=== PATIENT | male | born 1985 | race Caucasian/White ===

== ENCOUNTER 2019-10-12 14:28 | Inpatient (IN) ==
[2019-10-12] MEDS ORDERED: cefTRIAXone 1,000 MG in Water for inj. (sterile) 10 ML IVP ONE (14:40)
[2019-10-12] MEDS ORDERED: Azithromycin 500 MG in 0.9 % Sodium Chloride 250 ML IVPB ONE (14:40)
[2019-10-12] MEDS ORDERED: methylPREDNISolone 125 MG/2 ML VIAL IVP ONE (14:49)
[2019-10-12] MEDS ORDERED: Ipratropium/Albuterol Neb 3 ML IH ONE (14:49)
[2019-10-12] MEDS ORDERED: Isovue-370 500 ML BOTTLE IVP ONE (14:49)
[2019-10-12] MEDS: 0.9 % Sodium Chloride 1,000 ML IVC SCH ×3 (14:57→16:18)
[2019-10-12 15:00] LABS: Hematocrit 47.5 % (37.5-50.1); Hemoglobin 16.2 g/dL (12.9-16.9); Mean Corpuscular HGB Conc 34.1 g/dL (31.6-35.5); Mean Corpuscular Hemoglobin 29.4 pg (28.0-33.3); Mean Corpuscular Volume 86.2 fL (83.0-100.0); Mean Platelet Volume 9.7 fL (9.4-12.4); Platelet Count 191 K/mcL (140-400); Red Blood Count 5.51 M/mcL (4.19-5.50); Red Cell Distribution Width 11.5 % (11.5-14.5); White Blood Count 6.1 K/mcL (4.3-11.1)
[2019-10-12 15:27] LABS: Lymphocytes # 0.2 K/mcL (0.6-4.6); Monocytes # 0.4 K/mcL (0.0-1.3); Neutrophils # 5.5 K/mcL (1.6-8.9); Platelet Estimate Normal (Normal)
[2019-10-12 15:34] LABS: VBG HCO3 26 mEq/L (21-27); VBG PCO2 56 mmHg (41-51); VBG PH 7.28 pH Units (7.32-7.42); VBG PO2 47 mmHg (25-50)
[2019-10-12 15:45] LABS: Alanine Aminotransferase 43 Units/L (7-52); Albumin 4.1 g/dL (3.5-5.7); Albumin/Globulin Ratio 1.2 (1.1-2.2); Alkaline Phosphatase 70 Units/L (34-104); Aspartate Amino Transferase 19 Units/L (13-39); BUN/Creatinine Ratio 19 (6-26); Bilirubin,Direct 0.2 mg/dL (0.0-0.2); Bilirubin,Indirect 0.5 mg/dL (0.0-1.0); Bilirubin,Total 0.7 mg/dL (0.3-1.0); Blood Urea Nitrogen 18 mg/dL (6-20); Calcium 9.5 mg/dL (8.6-10.3); Carbon Dioxide 22 mEq/L (23-29); Chloride 93 mEq/L (98-107); Globulin 3.4 g/dL (2.4-3.5); Glucose 454 mg/dL (70-105); Magnesium 1.6 mg/dL (1.6-2.6); Osmolality,Calculated 300 (280-300); Phosphorous 5.7 mg/dL (2.7-4.5); Potassium 3.9 mEq/L (3.5-5.1); Sodium 134 mEq/L (136-145); Total Protein 7.5 g/dL (6.4-8.9); Troponin I < 0.03 ng/mL (< 0.04); eGFR For African Americans > 60 (> 60); eGFR For Non-African Americans > 60 (> 60)
[2019-10-12] MEDS ORDERED: Potassium Chloride 40 MEQ, Lidocaine 1% 2 ML in 0.9 % Sodium Chloride 500 ML IVPB ONE (16:24)
[2019-10-12 16:34] LABS: Bilirubin,Urine Negative (Negative); Blood,Urine Negative (Negative); Clarity,Urine Clear (Clear); Color,Urine Yellow (Yellow); Glucose,Urine (UA) >=1000 mg/dL (Normal); Ketones,Urine 40 mg/dL (Negative); Leukocyte Esterase,Urine Negative (Negative); Nitrite,Urine Negative (Negative); PH,Urine 5.5 pH Units (5.0-8.0); Protein,Urine Negative (Neg-Trace); Specific Gravity,Urine > 1.030 (1.010-1.025); Urobilinogen,Urine Normal (Normal)
[2019-10-12] MEDS ORDERED: Insulin LISPRO 300 UNITS/3 ML VIAL SQ ONE (18:32)
[2019-10-12] MEDS ORDERED: D5% in 0.45% NACL w KCl 20 MEQ/1,000 ML MLS IVC PRN (18:32)
[2019-10-12] MEDS ORDERED: Naloxone 0.4 MG/ML INJ IVP PRN (18:32)
[2019-10-12] MEDS ORDERED: Insulin Regular, Human 100 UNIT/ML IV PRN (18:32)
[2019-10-12] MEDS ORDERED: Albuterol 2.5 MG/3 ML NEBULIZER IH PRN (18:32)
[2019-10-12] MEDS ORDERED: *HR* Dextrose 50 % in Water (Syg) 50 ML SYRINGE IVP PRN (18:32)
[2019-10-12] MEDS ORDERED: Vancomycin (wt based) 1,000 MG VIAL IVPB SCH (19:00)
[2019-10-12 19:30] LABS: ABG Base Excess -1 mEq/L (-2 to 3); ABG HCO3 24 mEq/L (21-27); ABG Oxygen Saturation 97 % (95-98); ABG PCO2 39 mmHg (35-45); ABG PO2 89 mmHg (85-104); ABG TCO2 25 mEq/L (20-26)
[2019-10-12] MEDS: Ipratropium/Albuterol Neb 3 ML IH SCH (19:30)
[2019-10-12] MEDS: Doxycycline 100 MG in 0.9 % Sodium Chloride Mini Bag 100 ML IVPB SCH (20:11)
[2019-10-12] MEDS: 0.9 % Sodium Chloride w KCl 20 MEQ/1,000 ML MLS IVC SCH (20:16)
[2019-10-12] MEDS: Insulin Human Regular 100 UNIT in 0.9 % Sodium Chloride 100 ML IVC SCH (20:19)
[2019-10-12] MEDS: *HR* Heparin 5,000 UNIT/ML VIAL SQ SCH (22:02)
[2019-10-12 22:05] LABS: BUN/Creatinine Ratio 18 (6-26); Blood Urea Nitrogen 13 mg/dL (6-20); Calcium 8.2 mg/dL (8.6-10.3); Carbon Dioxide 22 mEq/L (23-29); Chloride 106 mEq/L (98-107); Glucose 320 mg/dL (70-105); Magnesium 1.6 mg/dL (1.6-2.6); Osmolality,Calculated 298 (280-300); Phosphorous 2.1 mg/dL (2.7-4.5); Potassium 4.1 mEq/L (3.5-5.1); Sodium 138 mEq/L (136-145); eGFR For African Americans > 60 (> 60); eGFR For Non-African Americans > 60 (> 60)
[2019-10-13] MEDS: 0.9 % Sodium Chloride w KCl 20 MEQ/1,000 ML MLS IVC SCH ×9 (00:08→23:44)
[2019-10-13] MEDS: Piperacillin/Tazobactam 3.375 GM in 0.9 % Sodium Chloride Mini Bag 100 ML IVPB SCH ×2 (00:08→08:10)
[2019-10-13] MEDS: Ipratropium/Albuterol Neb 3 ML IH SCH ×7 (00:43→23:42)
[2019-10-13] MEDS: Insulin Human Regular 100 UNIT in 0.9 % Sodium Chloride 100 ML IVC SCH (01:10)
[2019-10-13] MEDS: Acetaminophen 325 MG TABLET PO PRN (04:18)
[2019-10-13 04:24] LABS: Alanine Aminotransferase 28 Units/L (7-52); Albumin 3.1 g/dL (3.5-5.7); Albumin/Globulin Ratio 1.1 (1.1-2.2); Alkaline Phosphatase 35 Units/L (34-104); Aspartate Amino Transferase 15 Units/L (13-39); BUN/Creatinine Ratio 23 (6-26); Bilirubin,Direct 0.1 mg/dL (0.0-0.2); Bilirubin,Indirect 0.5 mg/dL (0.0-1.0); Bilirubin,Total 0.6 mg/dL (0.3-1.0); Blood Urea Nitrogen 14 mg/dL (6-20); Calcium 7.9 mg/dL (8.6-10.3); Carbon Dioxide 23 mEq/L (23-29); Chloride 108 mEq/L (98-107); Globulin 2.7 g/dL (2.4-3.5); Glucose 149 mg/dL (70-105); Osmolality,Calculated 287 (280-300); Potassium 3.6 mEq/L (3.5-5.1); Sodium 137 mEq/L (136-145); Total Protein 5.8 g/dL (6.4-8.9); eGFR For African Americans > 60 (> 60); eGFR For Non-African Americans > 60 (> 60)
[2019-10-13 04:25] LABS: Hematocrit 39.1 % (37.5-50.1); Mean Corpuscular HGB Conc 34.3 g/dL (31.6-35.5); Mean Corpuscular Hemoglobin 29.3 pg (28.0-33.3); Mean Corpuscular Volume 85.4 fL (83.0-100.0); Mean Platelet Volume 9.8 fL (9.4-12.4); Platelet Count 147 K/mcL (140-400); Red Blood Count 4.58 M/mcL (4.19-5.50); Red Cell Distribution Width 11.7 % (11.5-14.5)
[2019-10-13 04:32] LABS: Hemoglobin 13.4 g/dL (12.9-16.9)
[2019-10-13 04:46] LABS: BUN/Creatinine Ratio 22 (6-26); Blood Urea Nitrogen 14 mg/dL (6-20); Calcium 7.8 mg/dL (8.6-10.3); Carbon Dioxide 23 mEq/L (23-29); Chloride 108 mEq/L (98-107); Glucose 154 mg/dL (70-105); Magnesium 1.6 mg/dL (1.6-2.6); Osmolality,Calculated 288 (280-300); Potassium 3.6 mEq/L (3.5-5.1); Sodium 137 mEq/L (136-145); eGFR For African Americans > 60 (> 60); eGFR For Non-African Americans > 60 (> 60)
[2019-10-13] MEDS ORDERED: Potassium Phosphate 44 MEQ in 0.9 % Sodium Chloride 250 ML IVPB ONE (04:54)
[2019-10-13] MEDS: Doxycycline 100 MG in 0.9 % Sodium Chloride Mini Bag 100 ML IVPB SCH (05:00)
[2019-10-13] MEDS: *HR* Heparin 5,000 UNIT/ML VIAL SQ SCH ×3 (05:00→20:47)
[2019-10-13] MEDS ORDERED: Insulin DETEMIR 100 UNIT/ML X5UNITS SQ ONE (05:06)
[2019-10-13 05:55] LABS: Lymphocytes # 0.5 K/mcL (0.6-4.6); Monocytes # 0.2 K/mcL (0.0-1.3); Platelet Estimate Normal (Normal); Reactive Lymphocytes Present (Not Present)
[2019-10-13 07:06] LABS: Phosphorous < 1.0 mg/dL (2.7-4.5)
[2019-10-13] MEDS ORDERED: Insulin LISPRO 300 UNITS/3 ML VIAL SQ SCH (08:00)
[2019-10-13 08:01] LABS: Acinetobacter baumannii by PCR Not Detected (Not Detect); Candida albicans by PCR Not Detected (Not Detect); Candida glabrata by PCR Not Detected (Not Detect); Candida krusei by PCR Not Detected (Not Detect); Candida parapsilosis by PCR Not Detected (Not Detect); Candida tropicalis by PCR Not Detected (Not Detect); Enterobacter cloacae Cmplx PCR Not Detected (Not Detect); Enterobacteriaceae by PCR Not Detected (Not Detect); Enterococcus by PCR Not Detected (Not Detect); Escherichia coli by PCR Not Detected (Not Detect); Klebsiella oxytoca by PCR Not Detected (Not Detect); Klebsiella pneumoniae by PCR Not Detected (Not Detect); Proteus by PCR Not Detected (Not Detect); Pseudomonas aeruginosa by PCR Not Detected (Not Detect); Serratia marcescens by PCR Not Detected (Not Detect); Staphylococcus aureus by PCR DETECTED (Not Detect); Streptococcus agalactiae(B)PCR Not Detected (Not Detect); Streptococcus by PCR Not Detected (Not Detect); Streptococcus pneumoniae PCR Not Detected (Not Detect); Streptococcus pyogenes (A) PCR Not Detected (Not Detect); blaKPC Carbapenem-Resist Gene Not Detected (Not Detect); mecA Methicillin-Resist Gene Not Detected (Not Detect); vanA/B Vancomycin-Resist Genes Not Detected (Not Detect)
[2019-10-13] MEDS: Aspirin Enteric Coated 81 MG Tablet PO SCH (08:06)
[2019-10-13] MEDS: MethylPREDNISolone 40 MG/ML VIAL IVP SCH ×3 (08:30→23:25)
[2019-10-13 08:33] LABS: Estimated Average Glucose 315 mg/dl
[2019-10-13] MEDS ORDERED: *HR* Dextrose 50 % in Water (Syg) 50 ML SYRINGE IVP PRN (08:58)
[2019-10-13] MEDS ORDERED: Insulin Human Regular 100 UNIT in 0.9 % Sodium Chloride 100 ML IVC SCH (09:00)
[2019-10-13 10:19] LABS: Adenovirus Not Detected (Not Detect); Bordetella Pertussis Not Detected (Not Detect); Chlamydophila pneumoniae Not Detected (Not Detect); Coronavirus 229E Not Detected (Not Detect); Coronavirus HKU1 Not Detected (Not Detect); Coronavirus NL63 Not Detected (Not Detect); Coronavirus OC43 Not Detected (Not Detect); Human Metapneumovirus Not Detected (Not Detect); Human Rhinovirus/Enterovirus Not Detected (Not Detect); Influenza A Subtype 2009 H1 Not Detected (Not Detect); Mycoplasma pneumoniae Not Detected (Not Detect); Parainfluenza Virus 1 Not Detected (Not Detect); Parainfluenza Virus 2 Not Detected (Not Detect); Parainfluenza Virus 3 Not Detected (Not Detect); Parainfluenza Virus 4 Not Detected (Not Detect); Respiratory Syncytial Virus Not Detected (Not Detect)
[2019-10-13 10:23] LABS: Influenza B DETECTED (Not Detect)
[2019-10-13] MEDS ORDERED: Perflutren Lipid Microsphere 1.3 ML in 0.9 % Sodium Chloride 8.7 ML IVP ONE (10:49)
[2019-10-13 12:09] LABS: BUN/Creatinine Ratio 27 (6-26); Blood Urea Nitrogen 14 mg/dL (6-20); Calcium 7.7 mg/dL (8.6-10.3); Carbon Dioxide 22 mEq/L (23-29); Chloride 106 mEq/L (98-107); Glucose 144 mg/dL (70-105); Magnesium 1.7 mg/dL (1.6-2.6); Osmolality,Calculated 287 (280-300); Phosphorous 1.9 mg/dL (2.7-4.5); Potassium 3.9 mEq/L (3.5-5.1); Sodium 137 mEq/L (136-145); eGFR For African Americans > 60 (> 60); eGFR For Non-African Americans > 60 (> 60)
[2019-10-13] MEDS: ceFAZolin 2,000 MG in 0.9 % Sodium Chloride 100 ML IVPB SCH ×2 (16:03→23:25)
[2019-10-13 17:43] LABS: BUN/Creatinine Ratio 24 (6-26); Blood Urea Nitrogen 15 mg/dL (6-20); Calcium 7.9 mg/dL (8.6-10.3); Carbon Dioxide 23 mEq/L (23-29); Chloride 105 mEq/L (98-107); Glucose 156 mg/dL (70-105); Magnesium 1.8 mg/dL (1.6-2.6); Osmolality,Calculated 286 (280-300); Phosphorous 2.1 mg/dL (2.7-4.5); Potassium 3.8 mEq/L (3.5-5.1); Sodium 136 mEq/L (136-145); eGFR For African Americans > 60 (> 60); eGFR For Non-African Americans > 60 (> 60)
[2019-10-13] MEDS: 0.9 % Sodium Chloride 1,000 ML IVC SCH (20:46)
[2019-10-13] MEDS ORDERED: Ondansetron 4 MG/2 ML VIAL ONE (20:49)
[2019-10-13] MEDS: Ondansetron 4 MG/2 ML VIAL IVP PRN (20:53)
[2019-10-13] MEDS ORDERED: *HR* HYDROmorphone (PF) 1 MG/ML SYRINGE IVP PRN (23:41)
[2019-10-13 23:49] LABS: BUN/Creatinine Ratio 33 (6-26); Blood Urea Nitrogen 16 mg/dL (6-20); Calcium 7.8 mg/dL (8.6-10.3); Carbon Dioxide 25 mEq/L (23-29); Chloride 104 mEq/L (98-107); Glucose 139 mg/dL (70-105); Magnesium 1.9 mg/dL (1.6-2.6); Osmolality,Calculated 287 (280-300); Phosphorous 1.7 mg/dL (2.7-4.5); Potassium 3.6 mEq/L (3.5-5.1); Sodium 137 mEq/L (136-145); eGFR For African Americans > 60 (> 60); eGFR For Non-African Americans > 60 (> 60)
[2019-10-14] MEDS: Potassium Phosphate 44 MEQ in 0.9 % Sodium Chloride 250 ML IVPB PRN ×2 (02:31→15:51)
[2019-10-14] MEDS: Ipratropium/Albuterol Neb 3 ML IH SCH ×5 (03:37→20:44)
[2019-10-14] MEDS: *HR* Heparin 5,000 UNIT/ML VIAL SQ SCH ×3 (05:05→22:00)
[2019-10-14] MEDS: Pantoprazole 40 MG VIAL IVP SCH ×2 (05:05→21:29)
[2019-10-14] MEDS: 0.9 % Sodium Chloride 1,000 ML IVC SCH (06:13)
[2019-10-14 06:27] LABS: Hematocrit 35.2 % (37.5-50.1); Hemoglobin 12.3 g/dL (12.9-16.9); Mean Corpuscular HGB Conc 34.9 g/dL (31.6-35.5); Mean Corpuscular Hemoglobin 30.2 pg (28.0-33.3); Mean Corpuscular Volume 86.5 fL (83.0-100.0); Mean Platelet Volume 9.5 fL (9.4-12.4); Platelet Count 140 K/mcL (140-400); Red Blood Count 4.07 M/mcL (4.19-5.50); Red Cell Distribution Width 11.9 % (11.5-14.5)
[2019-10-14 06:50] LABS: BUN/Creatinine Ratio 35 (6-26); Blood Urea Nitrogen 17 mg/dL (6-20); Calcium 7.6 mg/dL (8.6-10.3); Carbon Dioxide 26 mEq/L (23-29); Chloride 104 mEq/L (98-107); Glucose 161 mg/dL (70-105); Osmolality,Calculated 289 (280-300); Phosphorous 2.7 mg/dL (2.7-4.5); Potassium 3.8 mEq/L (3.5-5.1); Sodium 137 mEq/L (136-145); eGFR For African Americans > 60 (> 60); eGFR For Non-African Americans > 60 (> 60)
[2019-10-14 06:56] LABS: Lymphocytes # 0.9 K/mcL (0.6-4.6); Monocytes # 0.1 K/mcL (0.0-1.3); Neutrophils # 3.9 K/mcL (1.6-8.9); Platelet Estimate Normal (Normal)
[2019-10-14 07:42] LABS: VBG Ionized Calcium 1.01 mmol/L (1.15-1.35)
[2019-10-14] MEDS ORDERED: Fluconazole 200 MG/100 ML 200 MG/100 ML BAG IVPB SCH (09:00)
[2019-10-14] MEDS ORDERED: Lidocaine -MPF 1% 5 ML AMPUL INFILT ONE (09:15)
[2019-10-14] MEDS: MethylPREDNISolone 40 MG/ML VIAL IVP SCH ×3 (09:30→23:58)
[2019-10-14] MEDS: Aspirin Enteric Coated 81 MG Tablet PO SCH (09:30)
[2019-10-14] MEDS: Piperacillin/Tazobactam 3.375 GM in 0.9 % Sodium Chloride Mini Bag 100 ML IVPB SCH ×3 (10:17→23:58)
[2019-10-14] MEDS ORDERED: *HR* Dextrose 50 % in Water (Syg) 50 ML SYRINGE IVP PRN (11:49)
[2019-10-14] MEDS ORDERED: Dextrose Gel 15 GM/37.5 ML TUBE PO PRN ×2 (11:49)
[2019-10-14] MEDS ORDERED: D5% in Water 1,000 ML IVC PRN (11:49)
[2019-10-14] MEDS ORDERED: Aminoglycoside Consult 1 EACH MC ONE (13:09)
[2019-10-14 14:16] LABS: VBG Ionized Calcium 1.02 mmol/L (1.15-1.35)
[2019-10-14 14:50] LABS: BUN/Creatinine Ratio 31 (6-26); Blood Urea Nitrogen 18 mg/dL (6-20); Calcium 7.9 mg/dL (8.6-10.3); Carbon Dioxide 23 mEq/L (23-29); Chloride 103 mEq/L (98-107); Glucose 275 mg/dL (70-105); Magnesium 2.1 mg/dL (1.6-2.6); Osmolality,Calculated 292 (280-300); Phosphorous 1.7 mg/dL (2.7-4.5); Potassium 3.9 mEq/L (3.5-5.1); Sodium 135 mEq/L (136-145); eGFR For African Americans > 60 (> 60); eGFR For Non-African Americans > 60 (> 60)
[2019-10-14] MEDS: Calcium Gluconate 1gm/50mL 1 GM/50 ML BAG IVPB PRN (16:10)
[2019-10-14] MEDS: Insulin DETEMIR 100 UNIT/ML X5UNITS SQ SCH (16:13)
[2019-10-14] MEDS: Insulin LISPRO 300 UNITS/3 ML VIAL SQ SCH (16:15)
[2019-10-14] MEDS ORDERED: Insulin LISPRO 300 UNITS/3 ML VIAL SQ SCH ×3 (16:30→21:00)
[2019-10-14 18:12] LABS: Hepatitis B Surface Antigen Nonreactive (Nonreactive)
[2019-10-14 18:41] LABS: Hepatitis C Virus Antibody Nonreactive (Nonreactive)
[2019-10-14 18:42] LABS: HIV-1&2 Antibody & p24 Ag Nonreactive (Nonreactive)
[2019-10-14 18:43] LABS: Hepatitis B Core IgM Nonreactive (Nonreactive)
[2019-10-14 18:44] LABS: Hepatitis A Antibody IgM Nonreactive (Nonreactive)
[2019-10-14 21:02] LABS: Amphetamines NEGATIVE ng/mL (Cutoff 30); Barbiturates NEGATIVE ng/mL (Cutoff 75); Benzodiazepines NEGATIVE ng/mL (Cutoff 75); Buprenorphine NEGATIVE ng/mL (Cutoff 1); Cocaine NEGATIVE ng/mL (Cutoff 30); Methadone NEGATIVE ng/mL (Cutoff 40); Methamphetamines NEGATIVE ng/mL (Cutoff 30); Opiates NEGATIVE ng/mL (Cutoff 30); Phencyclidine NEGATIVE ng/mL (Cutoff 15)
[2019-10-14 22:37] LABS: VBG Ionized Calcium 1.11 mmol/L (1.15-1.35)
[2019-10-15] MEDS: Ipratropium/Albuterol Neb 3 ML IH SCH ×3 (00:07→07:37)
[2019-10-15 04:39] LABS: Basophils % 0.2 %; Hematocrit 35.3 % (37.5-50.1); Hemoglobin 11.9 g/dL (12.9-16.9); Immature Granulocytes % 0.8 % (0-4); Lymphocytes # 0.5 K/mcL (0.6-4.6); Lymphocytes % 7.3 %; Mean Corpuscular HGB Conc 33.7 g/dL (31.6-35.5); Mean Corpuscular Hemoglobin 29.2 pg (28.0-33.3); Mean Corpuscular Volume 86.5 fL (83.0-100.0); Mean Platelet Volume 9.7 fL (9.4-12.4); Monocytes # 0.3 K/mcL (0.0-1.3); Monocytes % 5.5 %; Neutrophils # 5.3 K/mcL (1.6-8.9); Platelet Count 178 K/mcL (140-400); Red Blood Count 4.08 M/mcL (4.19-5.50); Red Cell Distribution Width 11.6 % (11.5-14.5); Segmented Neutrophils % 86.2 %; White Blood Count 6.1 K/mcL (4.3-11.1)
[2019-10-15 05:01] LABS: Platelet Estimate Normal (Normal)
[2019-10-15 05:03] LABS: Magnesium 2.2 mg/dL (1.6-2.6); Phosphorous 2.7 mg/dL (2.7-4.5)
[2019-10-15 05:04] LABS: Alanine Aminotransferase 34 Units/L (7-52); Albumin 2.8 g/dL (3.5-5.7); Alkaline Phosphatase 43 Units/L (34-104); Aspartate Amino Transferase 30 Units/L (13-39); BUN/Creatinine Ratio 38 (6-26); Bilirubin,Total 0.6 mg/dL (0.3-1.0); Blood Urea Nitrogen 19 mg/dL (6-20); Carbon Dioxide 27 mEq/L (23-29); Chloride 103 mEq/L (98-107); Globulin 2.9 g/dL (2.4-3.5); Glucose 263 mg/dL (70-105); Osmolality,Calculated 293 (280-300); Sodium 136 mEq/L (136-145); Total Protein 5.7 g/dL (6.4-8.9); eGFR For African Americans > 60 (> 60); eGFR For Non-African Americans > 60 (> 60)
[2019-10-15] MEDS: *HR* Heparin 5,000 UNIT/ML VIAL SQ SCH ×3 (05:38→22:01)
[2019-10-15] MEDS: Pantoprazole 40 MG VIAL IVP SCH ×2 (05:38→17:40)
[2019-10-15] MEDS: Piperacillin/Tazobactam 3.375 GM in 0.9 % Sodium Chloride Mini Bag 100 ML IVPB SCH (07:54)
[2019-10-15] MEDS: MethylPREDNISolone 40 MG/ML VIAL IVP SCH (07:55)
[2019-10-15] MEDS: Insulin LISPRO 300 UNITS/3 ML VIAL SQ SCH ×4 (07:56→17:34)
[2019-10-15] MEDS: Aspirin Enteric Coated 81 MG Tablet PO SCH (07:56)
[2019-10-15] MEDS: Insulin DETEMIR 100 UNIT/ML X5UNITS SQ SCH ×2 (07:56→19:57)
[2019-10-15] MEDS: ceFAZolin 2,000 MG in 0.9 % Sodium Chloride 100 ML IVPB SCH ×2 (16:03→23:24)
[2019-10-15] MEDS ORDERED: *HR* Dextrose 50 % in Water (Syg) 50 ML SYRINGE IVP PRN (16:19)
[2019-10-15] MEDS ORDERED: D5% in Water 1,000 ML IVC PRN (16:19)
[2019-10-15] MEDS ORDERED: Dextrose Gel 15 GM/37.5 ML TUBE PO PRN ×2 (16:19)
[2019-10-15] MEDS ORDERED: Insulin LISPRO 300 UNITS/3 ML VIAL SQ SCH (21:00)
[2019-10-16] MEDS: Ondansetron 4 MG/2 ML VIAL IVP PRN (04:39)
[2019-10-16 04:46] LABS: Basophils % 0.4 %; Hematocrit 36.3 % (37.5-50.1); Hemoglobin 12.5 g/dL (12.9-16.9); Immature Granulocytes % 2.6 % (0-4); Lymphocytes # 0.7 K/mcL (0.6-4.6); Lymphocytes % 5.8 %; Mean Corpuscular HGB Conc 34.4 g/dL (31.6-35.5); Mean Corpuscular Hemoglobin 29.6 pg (28.0-33.3); Mean Corpuscular Volume 85.8 fL (83.0-100.0); Mean Platelet Volume 9.5 fL (9.4-12.4); Monocytes # 0.6 K/mcL (0.0-1.3); Monocytes % 4.9 %; Neutrophils # 9.7 K/mcL (1.6-8.9); Platelet Count 239 K/mcL (140-400); Red Blood Count 4.23 M/mcL (4.19-5.50); Red Cell Distribution Width 11.6 % (11.5-14.5); Segmented Neutrophils % 86.3 %; White Blood Count 11.2 K/mcL (4.3-11.1)
[2019-10-16 04:50] LABS: VBG Ionized Calcium 1.14 mmol/L (1.15-1.35)
[2019-10-16 05:05] LABS: BUN/Creatinine Ratio 45 (6-26); Blood Urea Nitrogen 25 mg/dL (6-20); Calcium 8.3 mg/dL (8.6-10.3); Carbon Dioxide 28 mEq/L (23-29); Chloride 103 mEq/L (98-107); Glucose 167 mg/dL (70-105); Osmolality,Calculated 290 (280-300); Sodium 136 mEq/L (136-145); eGFR For African Americans > 60 (> 60); eGFR For Non-African Americans > 60 (> 60)
[2019-10-16 05:10] LABS: Alanine Aminotransferase 29 Units/L (7-52); Albumin 2.8 g/dL (3.5-5.7); Alkaline Phosphatase 46 Units/L (34-104); Aspartate Amino Transferase 14 Units/L (13-39); BUN/Creatinine Ratio 45 (6-26); Bilirubin,Total 0.5 mg/dL (0.3-1.0); Blood Urea Nitrogen 24 mg/dL (6-20); Calcium 8.4 mg/dL (8.6-10.3); Carbon Dioxide 27 mEq/L (23-29); Chloride 103 mEq/L (98-107); Globulin 2.9 g/dL (2.4-3.5); Glucose 160 mg/dL (70-105); Magnesium 1.8 mg/dL (1.6-2.6); Osmolality,Calculated 289 (280-300); Phosphorous 3.4 mg/dL (2.7-4.5); Sodium 136 mEq/L (136-145); Total Protein 5.7 g/dL (6.4-8.9); eGFR For African Americans > 60 (> 60); eGFR For Non-African Americans > 60 (> 60)
[2019-10-16 05:16] LABS: ABG Base Excess 5 mEq/L (-2 to 3); ABG HCO3 29 mEq/L (21-27); ABG Oxygen Saturation 88 % (95-98); ABG PCO2 40 mmHg (35-45); ABG PH 7.47 pH Units (7.32-7.45); ABG PO2 52 mmHg (85-104); ABG TCO2 30 mEq/L (20-26)
[2019-10-16] MEDS: Pantoprazole 40 MG VIAL IVP SCH ×3 (05:57→11:39)
[2019-10-16] MEDS: *HR* Heparin 5,000 UNIT/ML VIAL SQ SCH ×3 (05:57→21:34)
[2019-10-16] MEDS ORDERED: *HR* Promethazine 25 MG/ML VIAL ONE (07:19)
[2019-10-16] MEDS: FentaNYL (PF) 1,000 MCG in 0.9 % Sodium Chloride 80 ML IVC SCH ×2 (08:08→16:35)
[2019-10-16] MEDS ORDERED: *HR* Vecuronium 10 MG VIAL ONE (08:12)
[2019-10-16 08:21] LABS: ABG Base Excess 7 mEq/L (-2 to 3); ABG HCO3 34 mEq/L (21-27); ABG Oxygen Saturation 88 % (95-98); ABG PCO2 57 mmHg (35-45); ABG PH 7.38 pH Units (7.32-7.45); ABG PO2 57 mmHg (85-104); ABG TCO2 35 mEq/L (20-26); Blood Gas Modality AF; Blood Gas VT 550 cc
[2019-10-16] MEDS: Cisatracurium 200 MG in 0.9 % Sodium Chloride 180 ML IVC SCH ×2 (08:41→20:20)
[2019-10-16] MEDS ORDERED: *HR* Midazolam HCl 5 MG/5 ML VIAL IVP ONE ×2 (08:55→09:51)
[2019-10-16] MEDS ORDERED: *HR* Rocuronium Bromide 50 MG/5 ML VIAL IVP ONE (08:55)
[2019-10-16] MEDS ORDERED: *HR* Vecuronium 10 MG VIAL IVP ONE (08:57)
[2019-10-16] MEDS ORDERED: 0.9 % Sodium Chloride 1,000 ML ONE (09:15)
[2019-10-16] MEDS ORDERED: *HR* Succinylcholine 200 MG/10 ML VIAL IVP ONE (09:51)
[2019-10-16] MEDS ORDERED: *HR* Propofol 200 MG/20 ML VIAL IVP ONE (09:51)
[2019-10-16] MEDS ORDERED: Piperacillin/Tazobactam 3.375 GM in 0.9 % Sodium Chloride Mini Bag 100 ML IVPB SCH (10:00)
[2019-10-16] MEDS ORDERED: Norepinephrine 4 MG in 0.9 % Sodium Chloride 250 ML IVC SCH (10:45)
[2019-10-16] MEDS: Norepinephrine 4 MG in 0.9 % Sodium Chloride 250 ML IVC SCH (11:19)
[2019-10-16] MEDS: MetroNIDAZOLE 500 MG/100 ML 500 MG/100 ML BAG IVPB SCH ×2 (11:30→17:20)
[2019-10-16] MEDS: Cefepime HCl 2,000 MG in 0.9 % Sodium Chloride Mini Bag 100 ML IVPB SCH ×2 (11:30→17:20)
[2019-10-16] MEDS: Insulin LISPRO 300 UNITS/3 ML VIAL SQ SCH ×3 (11:32→17:43)
[2019-10-16] MEDS: Insulin DETEMIR 100 UNIT/ML X5UNITS SQ SCH (11:32)
[2019-10-16] MEDS: Aspirin Enteric Coated 81 MG Tablet PO SCH (11:32)
[2019-10-16] MEDS: Artificial Tears SOLN 15 ML BOTTLE BOTH EYES PRN (11:38)
[2019-10-16] MEDS: Artificial Tears SOLN 15 ML BOTTLE BOTH EYES SCH ×3 (11:39→21:34)
[2019-10-16] MEDS: Chlorhexidine Rinse 15 ML MOUTHWASH MM SCH ×2 (11:39→19:40)
[2019-10-16 11:47] LABS: ABG Base Excess 5 mEq/L (-2 to 3); ABG HCO3 35 mEq/L (21-27); ABG Oxygen Saturation 92 % (95-98); ABG PCO2 73 mmHg (35-45); ABG PH 7.29 pH Units (7.32-7.45); ABG PO2 73 mmHg (85-104); ABG TCO2 37 mEq/L (20-26); Blood Gas Modality AF; Blood Gas VT 550 cc
[2019-10-16] MEDS ORDERED: *HR* Dextrose 50 % in Water (Syg) 50 ML SYRINGE IVP PRN (12:08)
[2019-10-16] MEDS ORDERED: Insulin Human Regular 100 UNIT in 0.9 % Sodium Chloride 100 ML IVC SCH (12:15)
[2019-10-16 13:16] LABS: ABG Base Excess 3 mEq/L (-2 to 3); ABG HCO3 31 mEq/L (21-27); ABG Oxygen Saturation 89 % (95-98); ABG PCO2 63 mmHg (35-45); ABG PO2 64 mmHg (85-104); ABG TCO2 33 mEq/L (20-26); Blood Gas Modality AF; Blood Gas VT 550 cc
[2019-10-16 14:35] LABS: ABG Base Excess 4 mEq/L (-2 to 3); ABG HCO3 32 mEq/L (21-27); ABG Oxygen Saturation 98 % (95-98); ABG PCO2 65 mmHg (35-45); ABG PO2 120 mmHg (85-104); ABG TCO2 34 mEq/L (20-26); Blood Gas Modality AF; Blood Gas VT 550 cc
[2019-10-16] MEDS: MethylPREDNISolone 40 MG/ML VIAL IVP SCH (15:02)
[2019-10-16] MEDS ORDERED: 0.9 % Sodium Chloride 500 ML ONE (16:54)
[2019-10-16 17:58] LABS: Bilirubin,Urine Negative (Negative); Blood,Urine Moderate (Negative); Clarity,Urine Turbid (Clear); Color,Urine Dark Yellow (Yellow); Glucose,Urine (UA) 100 mg/dL (Normal); Ketones,Urine Negative (Negative); Leukocyte Esterase,Urine Negative (Negative); Nitrite,Urine Negative (Negative); PH,Urine 5.5 pH Units (5.0-8.0); Protein,Urine 30 mg/dL (Neg-Trace); Specific Gravity,Urine > 1.030 (1.010-1.025); Urobilinogen,Urine Normal (Normal)
[2019-10-16 18:00] LABS: Bacteria,Urine None Seen per hpf (None-Few); Hyaline Casts,Urine Few per lpf (None-Few); RBC,Urine 50-100 per hpf (0-3); Squamous Epithelial Cell,Urine Many per lpf (None-Few)
[2019-10-16] MEDS ORDERED: Insulin LISPRO 300 UNITS/3 ML VIAL SQ SCH (18:00)
[2019-10-16 20:10] LABS: ABG Base Excess 5 mEq/L (-2 to 3); ABG HCO3 33 mEq/L (21-27); ABG Oxygen Saturation 99 % (95-98); ABG PCO2 60 mmHg (35-45); ABG PH 7.34 pH Units (7.32-7.45); ABG PO2 138 mmHg (85-104); ABG TCO2 35 mEq/L (20-26); Blood Gas VT 550 cc
[2019-10-16 20:41] LABS: INR 1.1
[2019-10-17] MEDS: Artificial Tears SOLN 15 ML BOTTLE BOTH EYES SCH ×7 (01:36→23:04)
[2019-10-17] MEDS: Insulin LISPRO 300 UNITS/3 ML VIAL SQ SCH ×5 (01:37→23:16)
[2019-10-17] MEDS: MethylPREDNISolone 40 MG/ML VIAL IVP SCH ×4 (01:43→23:03)
[2019-10-17] MEDS: MetroNIDAZOLE 500 MG/100 ML 500 MG/100 ML BAG IVPB SCH ×3 (01:43→17:56)
[2019-10-17] MEDS: Cefepime HCl 2,000 MG in 0.9 % Sodium Chloride Mini Bag 100 ML IVPB SCH ×3 (01:43→17:57)
[2019-10-17] MEDS: FentaNYL (PF) 1,000 MCG in 0.9 % Sodium Chloride 80 ML IVC SCH ×3 (02:36→22:43)
[2019-10-17 03:21] LABS: Basophils % 0.3 %; Hematocrit 37.3 % (37.5-50.1); Hemoglobin 12.3 g/dL (12.9-16.9); Immature Granulocytes % 6.7 % (0-4); Lymphocytes # 0.3 K/mcL (0.6-4.6); Mean Corpuscular Hemoglobin 29.1 pg (28.0-33.3); Mean Corpuscular Volume 88.2 fL (83.0-100.0); Mean Platelet Volume 9.2 fL (9.4-12.4); Monocytes # 0.6 K/mcL (0.0-1.3); Monocytes % 3.9 %; Neutrophils # 13.8 K/mcL (1.6-8.9); Nucleated Red Blood Cells 0.2 /100 WBC (0); Platelet Count 260 K/mcL (140-400); Red Blood Count 4.23 M/mcL (4.19-5.50); Red Cell Distribution Width 11.9 % (11.5-14.5); Segmented Neutrophils % 87.1 %; White Blood Count 15.8 K/mcL (4.3-11.1)
[2019-10-17 03:23] LABS: VBG Ionized Calcium 1.09 mmol/L (1.15-1.35)
[2019-10-17 03:35] LABS: Basophils # 0.1 K/mcL (0.0-0.2)
[2019-10-17 03:41] LABS: BUN/Creatinine Ratio 39 (6-26); Blood Urea Nitrogen 17 mg/dL (6-20); Calcium 7.8 mg/dL (8.6-10.3); Carbon Dioxide 30 mEq/L (23-29); Chloride 101 mEq/L (98-107); Glucose 139 mg/dL (70-105); Magnesium 2.1 mg/dL (1.6-2.6); Osmolality,Calculated 290 (280-300); Potassium 4.2 mEq/L (3.5-5.1); Sodium 138 mEq/L (136-145); eGFR For African Americans > 60 (> 60); eGFR For Non-African Americans > 60 (> 60)
[2019-10-17 04:03] LABS: Platelet Estimate Normal (Normal)
[2019-10-17 04:11] LABS: Phosphorous 4.4 mg/dL (2.7-4.5)
[2019-10-17 04:52] LABS: ABG Base Excess 6 mEq/L (-2 to 3); ABG HCO3 34 mEq/L (21-27); ABG Oxygen Saturation 99 % (95-98); ABG PCO2 61 mmHg (35-45); ABG PH 7.35 pH Units (7.32-7.45); ABG PO2 127 mmHg (85-104); ABG TCO2 36 mEq/L (20-26); Blood Gas VT 500 cc
[2019-10-17] MEDS: Calcium Gluconate 1gm/50mL 1 GM/50 ML BAG IVPB PRN (05:27)
[2019-10-17] MEDS: *HR* Heparin 5,000 UNIT/ML VIAL SQ SCH ×3 (06:51→21:02)
[2019-10-17] MEDS: Chlorhexidine Rinse 15 ML MOUTHWASH MM SCH ×2 (07:57→21:00)
[2019-10-17] MEDS: Pantoprazole 40 MG VIAL IVP SCH (07:57)
[2019-10-17] MEDS: Aspirin Enteric Coated 81 MG Tablet PO SCH (07:58)
[2019-10-17] MEDS: Cisatracurium 200 MG in 0.9 % Sodium Chloride 180 ML IVC SCH ×2 (09:20→21:02)
[2019-10-17] MEDS: Norepinephrine 4 MG in 0.9 % Sodium Chloride 250 ML IVC SCH (10:35)
[2019-10-17 11:13] LABS: ABG Base Excess 7 mEq/L (-2 to 3); ABG HCO3 35 mEq/L (21-27); ABG Oxygen Saturation 95 % (95-98); ABG PCO2 65 mmHg (35-45); ABG PH 7.34 pH Units (7.32-7.45); ABG PO2 86 mmHg (85-104); ABG TCO2 37 mEq/L (20-26)
[2019-10-17 18:55] LABS: ABG Base Excess 10 mEq/L (-2 to 3); ABG HCO3 39 mEq/L (21-27); ABG Oxygen Saturation 93 % (95-98); ABG PCO2 72 mmHg (35-45); ABG PH 7.34 pH Units (7.32-7.45); ABG PO2 74 mmHg (85-104); ABG TCO2 41 mEq/L (20-26); Blood Gas VT 450 cc
[2019-10-17] MEDS ORDERED: Furosemide 40 MG/4 ML VIAL IVP ONE (20:36)
[2019-10-17] MEDS: Acetaminophen 325 MG TABLET PO PRN (23:03)
[2019-10-18] MEDS: MetroNIDAZOLE 500 MG/100 ML 500 MG/100 ML BAG IVPB SCH ×3 (02:13→17:41)
[2019-10-18] MEDS: Cefepime HCl 2,000 MG in 0.9 % Sodium Chloride Mini Bag 100 ML IVPB SCH ×3 (02:13→17:41)
[2019-10-18] MEDS: Artificial Tears SOLN 15 ML BOTTLE BOTH EYES SCH ×6 (03:22→23:03)
[2019-10-18 03:48] LABS: Basophils # 0.1 K/mcL (0.0-0.2); Basophils % 0.3 %; Hematocrit 39.7 % (37.5-50.1); Hemoglobin 12.7 g/dL (12.9-16.9); Immature Granulocytes % 5.6 % (0-4); Lymphocytes # 0.3 K/mcL (0.6-4.6); Lymphocytes % 1.3 %; Mean Corpuscular Hemoglobin 29.1 pg (28.0-33.3); Mean Corpuscular Volume 91.1 fL (83.0-100.0); Mean Platelet Volume 9.2 fL (9.4-12.4); Monocytes # 0.7 K/mcL (0.0-1.3); Monocytes % 2.8 %; Neutrophils # 22.3 K/mcL (1.6-8.9); Platelet Count 310 K/mcL (140-400); Red Blood Count 4.36 M/mcL (4.19-5.50)
[2019-10-18 03:50] LABS: VBG Ionized Calcium 1.15 mmol/L (1.15-1.35)
[2019-10-18 03:52] LABS: White Blood Count 24.8 K/mcL (4.3-11.1)
[2019-10-18] MEDS: Ipratropium/Albuterol Neb 3 ML IH PRN ×2 (03:58→09:44)
[2019-10-18 04:07] LABS: BUN/Creatinine Ratio 39 (6-26); Blood Urea Nitrogen 27 mg/dL (6-20); Calcium 8.2 mg/dL (8.6-10.3); Carbon Dioxide 37 mEq/L (23-29); Chloride 98 mEq/L (98-107); Glucose 203 mg/dL (70-105); Magnesium 2.3 mg/dL (1.6-2.6); Osmolality,Calculated 301 (280-300); Potassium 4.6 mEq/L (3.5-5.1); Sodium 140 mEq/L (136-145); eGFR For African Americans > 60 (> 60); eGFR For Non-African Americans > 60 (> 60)
[2019-10-18 04:14] LABS: Platelet Estimate Normal (Normal)
[2019-10-18 04:33] LABS: ABG Base Excess 11 mEq/L (-2 to 3); ABG HCO3 40 mEq/L (21-27); ABG Oxygen Saturation 95 % (95-98); ABG PCO2 75 mmHg (35-45); ABG PH 7.34 pH Units (7.32-7.45); ABG PO2 83 mmHg (85-104); ABG TCO2 42 mEq/L (20-26); Blood Gas VT 450 cc
[2019-10-18] MEDS: FentaNYL (PF) 1,000 MCG in 0.9 % Sodium Chloride 80 ML IVC SCH ×4 (05:10→23:18)
[2019-10-18] MEDS: Insulin LISPRO 300 UNITS/3 ML VIAL SQ SCH ×4 (05:21→23:03)
[2019-10-18] MEDS: *HR* Heparin 5,000 UNIT/ML VIAL SQ SCH ×3 (05:21→21:30)
[2019-10-18] MEDS: Aspirin Enteric Coated 81 MG Tablet PO SCH (07:50)
[2019-10-18] MEDS: MethylPREDNISolone 40 MG/ML VIAL IVP SCH ×3 (09:53→17:42)
[2019-10-18] MEDS: Pantoprazole 40 MG VIAL IVP SCH (09:53)
[2019-10-18] MEDS: Chlorhexidine Rinse 15 ML MOUTHWASH MM SCH ×2 (09:53→21:30)
[2019-10-18] MEDS: Norepinephrine 4 MG in 0.9 % Sodium Chloride 250 ML IVC SCH (09:54)
[2019-10-18 15:56] LABS: Bilirubin,Urine Negative (Negative); Blood,Urine Negative (Negative); Clarity,Urine Clear (Clear); Color,Urine Yellow (Yellow); Glucose,Urine (UA) 250 mg/dL (Normal); Ketones,Urine 15 mg/dL (Negative); Leukocyte Esterase,Urine Negative (Negative); Nitrite,Urine Negative (Negative); Protein,Urine 30 mg/dL (Neg-Trace); Specific Gravity,Urine > 1.030 (1.010-1.025); Urobilinogen,Urine Normal (Normal)
[2019-10-18 15:59] LABS: Bacteria,Urine None Seen per hpf (None-Few); Hyaline Casts,Urine Few per lpf (None-Few); Squamous Epithelial Cell,Urine Moderate per lpf (None-Few); WBC,Urine 0-3 per hpf (0-3)
[2019-10-18] MEDS ORDERED: Insulin DETEMIR 100 UNIT/ML X5UNITS SQ SCH (21:00)
[2019-10-19] MEDS: Cefepime HCl 2,000 MG in 0.9 % Sodium Chloride Mini Bag 100 ML IVPB SCH ×3 (01:47→17:28)
[2019-10-19] MEDS: MetroNIDAZOLE 500 MG/100 ML 500 MG/100 ML BAG IVPB SCH ×3 (01:47→17:34)
[2019-10-19] MEDS: Artificial Tears SOLN 15 ML BOTTLE BOTH EYES SCH ×5 (04:00→19:33)
[2019-10-19 04:41] LABS: ABG Base Excess 14 mEq/L (-2 to 3); ABG HCO3 40 mEq/L (21-27); ABG Oxygen Saturation 95 % (95-98); ABG PCO2 59 mmHg (35-45); ABG PH 7.44 pH Units (7.32-7.45); ABG PO2 77 mmHg (85-104); ABG TCO2 42 mEq/L (20-26); Blood Gas VT 450 cc
[2019-10-19] MEDS: MethylPREDNISolone 40 MG/ML VIAL IVP SCH ×2 (05:15→17:33)
[2019-10-19] MEDS: Insulin LISPRO 300 UNITS/3 ML VIAL SQ SCH (05:17)
[2019-10-19] MEDS: *HR* Heparin 5,000 UNIT/ML VIAL SQ SCH ×3 (05:21→21:02)
[2019-10-19 05:39] LABS: Hematocrit 35.7 % (37.5-50.1); Hemoglobin 11.2 g/dL (12.9-16.9); Mean Corpuscular HGB Conc 31.4 g/dL (31.6-35.5); Mean Corpuscular Hemoglobin 28.9 pg (28.0-33.3); Mean Corpuscular Volume 92.2 fL (83.0-100.0); Mean Platelet Volume 9.1 fL (9.4-12.4); Platelet Count 314 K/mcL (140-400); Red Blood Count 3.87 M/mcL (4.19-5.50); Red Cell Distribution Width 11.9 % (11.5-14.5)
[2019-10-19 05:41] LABS: VBG Ionized Calcium 1.13 mmol/L (1.15-1.35)
[2019-10-19 06:00] LABS: BUN/Creatinine Ratio 55 (6-26); Blood Urea Nitrogen 33 mg/dL (6-20); Calcium 8.1 mg/dL (8.6-10.3); Carbon Dioxide 39 mEq/L (23-29); Chloride 100 mEq/L (98-107); Glucose 290 mg/dL (70-105); Magnesium 2.4 mg/dL (1.6-2.6); Osmolality,Calculated 312 (280-300); Potassium 4.2 mEq/L (3.5-5.1); Sodium 142 mEq/L (136-145); eGFR For African Americans > 60 (> 60); eGFR For Non-African Americans > 60 (> 60)
[2019-10-19 06:06] LABS: Lymphocytes # 0.9 K/mcL (0.6-4.6); Neutrophils # 14.1 K/mcL (1.6-8.9); Platelet Estimate Normal (Normal)
[2019-10-19] MEDS: FentaNYL (PF) 1,000 MCG in 0.9 % Sodium Chloride 80 ML IVC SCH ×3 (06:39→21:59)
[2019-10-19] MEDS ORDERED: Aspirin 81 MG TAB.CHEW GTUBE SCH ×2 (08:15)
[2019-10-19] MEDS: Chlorhexidine Rinse 15 ML MOUTHWASH MM SCH ×2 (08:38→21:01)
[2019-10-19] MEDS: Pantoprazole 40 MG VIAL IVP SCH (08:39)
[2019-10-19] MEDS: Norepinephrine 4 MG in 0.9 % Sodium Chloride 250 ML IVC SCH (10:39)
[2019-10-19] MEDS: Insulin Human Regular 100 UNIT in 0.9 % Sodium Chloride 100 ML IVC SCH (12:07)
[2019-10-20] MEDS: Cefepime HCl 2,000 MG in 0.9 % Sodium Chloride Mini Bag 100 ML IVPB SCH ×3 (01:20→17:21)
[2019-10-20] MEDS: Artificial Tears SOLN 15 ML BOTTLE BOTH EYES SCH ×6 (01:20→20:33)
[2019-10-20] MEDS: MetroNIDAZOLE 500 MG/100 ML 500 MG/100 ML BAG IVPB SCH ×3 (01:20→17:25)
[2019-10-20] MEDS: FentaNYL (PF) 1,000 MCG in 0.9 % Sodium Chloride 80 ML IVC SCH ×4 (04:55→22:45)
[2019-10-20 05:03] LABS: Basophils # 0.1 K/mcL (0.0-0.2); Basophils % 0.4 %; Eosinophils % 0.1 %; Hematocrit 36.9 % (37.5-50.1); Hemoglobin 11.8 g/dL (12.9-16.9); Immature Granulocytes % 3.4 % (0-4); Lymphocytes # 0.9 K/mcL (0.6-4.6); Lymphocytes % 5.8 %; Mean Corpuscular Hemoglobin 29.6 pg (28.0-33.3); Mean Corpuscular Volume 92.7 fL (83.0-100.0); Mean Platelet Volume 9.4 fL (9.4-12.4); Monocytes # 0.6 K/mcL (0.0-1.3); Monocytes % 4.1 %; Neutrophils # 12.8 K/mcL (1.6-8.9); Platelet Count 314 K/mcL (140-400); Red Blood Count 3.98 M/mcL (4.19-5.50); Red Cell Distribution Width 11.8 % (11.5-14.5); Segmented Neutrophils % 86.2 %; White Blood Count 14.8 K/mcL (4.3-11.1)
[2019-10-20] MEDS: *HR* Heparin 5,000 UNIT/ML VIAL SQ SCH ×3 (05:07→20:32)
[2019-10-20 05:08] LABS: ABG Base Excess 12 mEq/L (-2 to 3); ABG HCO3 38 mEq/L (21-27); ABG Oxygen Saturation 91 % (95-98); ABG PCO2 52 mmHg (35-45); ABG PH 7.47 pH Units (7.32-7.45); ABG PO2 58 mmHg (85-104); ABG TCO2 40 mEq/L (20-26); Blood Gas Modality ASSIST CONTROL; Blood Gas VT 450 cc
[2019-10-20] MEDS: MethylPREDNISolone 40 MG/ML VIAL IVP SCH (05:08)
[2019-10-20 05:26] LABS: VBG Ionized Calcium 1.12 mmol/L (1.15-1.35)
[2019-10-20 05:29] LABS: BUN/Creatinine Ratio 65 (6-26); Blood Urea Nitrogen 33 mg/dL (6-20); Carbon Dioxide 37 mEq/L (23-29); Chloride 101 mEq/L (98-107); Glucose 111 mg/dL (70-105); Magnesium 2.1 mg/dL (1.6-2.6); Osmolality,Calculated 304 (280-300); Potassium 3.6 mEq/L (3.5-5.1); Sodium 143 mEq/L (136-145); eGFR For African Americans > 60 (> 60); eGFR For Non-African Americans > 60 (> 60)
[2019-10-20] MEDS: Potassium Phosphate 44 MEQ in 0.9 % Sodium Chloride 250 ML IVPB PRN (07:25)
[2019-10-20] MEDS ORDERED: Furosemide 20 MG/2 ML VIAL IVP ONE ×2 (08:14)
[2019-10-20] MEDS: Chlorhexidine Rinse 15 ML MOUTHWASH MM SCH ×2 (08:46→20:32)
[2019-10-20] MEDS: Pantoprazole 40 MG VIAL IVP SCH (08:49)
[2019-10-20] MEDS: Aspirin 81 MG TAB.CHEW GTUBE SCH (08:56)
[2019-10-20] MEDS ORDERED: *HR* FentaNYL (PF) 100 MCG/2 ML VIAL IVP ONE (09:53)
[2019-10-20] MEDS ORDERED: *HR* Midazolam HCl 5 MG/5 ML VIAL IVP ONE (09:53)
[2019-10-20] MEDS: Calcium Gluconate 1gm/50mL 1 GM/50 ML BAG IVPB SCH ×2 (10:00→10:31)
[2019-10-20] MEDS: Norepinephrine 4 MG in 0.9 % Sodium Chloride 250 ML IVC SCH (10:42)
[2019-10-20] MEDS: Ipratropium/Albuterol Neb 3 ML IH PRN (11:22)
[2019-10-20] MEDS: Insulin Human Regular 100 UNIT in 0.9 % Sodium Chloride 100 ML IVC SCH (11:45)
[2019-10-20] MEDS ORDERED: Lidocaine -MPF 1% 5 ML AMPUL INFILT ONE (14:40)
[2019-10-20 16:52] LABS: VBG Ionized Calcium 1.07 mmol/L (1.15-1.35)
[2019-10-20 17:18] LABS: Magnesium 1.8 mg/dL (1.6-2.6); Potassium 3.8 mEq/L (3.5-5.1)
[2019-10-20] MEDS: *HR* LORazepam 2 MG/ML VIAL IVP PRN (22:11)
[2019-10-20] MEDS: Artificial Tears SOLN 15 ML BOTTLE BOTH EYES PRN (23:11)
[2019-10-21] MEDS: Artificial Tears SOLN 15 ML BOTTLE BOTH EYES SCH ×6 (00:09→20:31)
[2019-10-21] MEDS: MetroNIDAZOLE 500 MG/100 ML 500 MG/100 ML BAG IVPB SCH ×3 (01:43→17:42)
[2019-10-21] MEDS: Cefepime HCl 2,000 MG in 0.9 % Sodium Chloride Mini Bag 100 ML IVPB SCH ×3 (01:43→17:42)
[2019-10-21 04:20] LABS: Basophils % 0.3 %; Eosinophils # 0.1 K/mcL (0.0-0.6); Eosinophils % 0.8 %; Hematocrit 33.7 % (37.5-50.1); Immature Granulocytes % 3.2 % (0-4); Lymphocytes # 0.9 K/mcL (0.6-4.6); Mean Corpuscular HGB Conc 32.6 g/dL (31.6-35.5); Mean Corpuscular Hemoglobin 29.8 pg (28.0-33.3); Mean Corpuscular Volume 91.3 fL (83.0-100.0); Mean Platelet Volume 9.5 fL (9.4-12.4); Monocytes # 0.5 K/mcL (0.0-1.3); Monocytes % 3.8 %; Neutrophils # 9.9 K/mcL (1.6-8.9); Nucleated Red Blood Cells 0.2 /100 WBC (0); Platelet Count 282 K/mcL (140-400); Red Blood Count 3.69 M/mcL (4.19-5.50); Red Cell Distribution Width 11.7 % (11.5-14.5); Segmented Neutrophils % 83.9 %; White Blood Count 11.8 K/mcL (4.3-11.1)
[2019-10-21 04:41] LABS: BUN/Creatinine Ratio 55 (6-26); Blood Urea Nitrogen 29 mg/dL (6-20); Calcium 7.5 mg/dL (8.6-10.3); Carbon Dioxide 34 mEq/L (23-29); Chloride 98 mEq/L (98-107); Glucose 151 mg/dL (70-105); Magnesium 1.8 mg/dL (1.6-2.6); Osmolality,Calculated 295 (280-300); Potassium 3.4 mEq/L (3.5-5.1); Sodium 138 mEq/L (136-145); eGFR For African Americans > 60 (> 60); eGFR For Non-African Americans > 60 (> 60)
[2019-10-21 04:48] LABS: ABG Base Excess 12 mEq/L (-2 to 3); ABG HCO3 37 mEq/L (21-27); ABG Oxygen Saturation 92 % (95-98); ABG PCO2 50 mmHg (35-45); ABG PH 7.48 pH Units (7.32-7.45); ABG PO2 62 mmHg (85-104); ABG TCO2 39 mEq/L (20-26); Blood Gas Modality ASSIST CONTROL; Blood Gas VT 450 cc
[2019-10-21] MEDS: FentaNYL (PF) 1,000 MCG in 0.9 % Sodium Chloride 80 ML IVC SCH ×3 (04:54→17:39)
[2019-10-21] MEDS: *HR* Heparin 5,000 UNIT/ML VIAL SQ SCH ×3 (04:56→22:40)
[2019-10-21] MEDS: Pantoprazole 40 MG VIAL IVP SCH (08:59)
[2019-10-21] MEDS: Aspirin 81 MG TAB.CHEW GTUBE SCH (08:59)
[2019-10-21] MEDS: Chlorhexidine Rinse 15 ML MOUTHWASH MM SCH ×2 (08:59→20:30)
[2019-10-21] MEDS: Norepinephrine 4 MG in 0.9 % Sodium Chloride 250 ML IVC SCH (11:14)
[2019-10-21] MEDS: Dexmedetomidine HCl 400 MCG/100 ML MLS IVC SCH ×3 (13:39→22:18)
[2019-10-21] MEDS: Furosemide 20 MG/2 ML VIAL IVP SCH ×2 (13:49→20:30)
[2019-10-21 15:24] LABS: Magnesium 1.9 mg/dL (1.6-2.6); Potassium 3.8 mEq/L (3.5-5.1)
[2019-10-21] MEDS: Insulin Human Regular 100 UNIT in 0.9 % Sodium Chloride 100 ML IVC SCH (18:00)
[2019-10-22] MEDS: Artificial Tears SOLN 15 ML BOTTLE BOTH EYES SCH ×6 (00:03→21:19)
[2019-10-22 01:17] LABS: Basophils # 0.1 K/mcL (0.0-0.2); Basophils % 0.5 %; Eosinophils # 0.1 K/mcL (0.0-0.6); Eosinophils % 0.9 %; Hematocrit 35.3 % (37.5-50.1); Hemoglobin 11.8 g/dL (12.9-16.9); Immature Granulocytes % 4.8 % (0-4); Lymphocytes # 0.5 K/mcL (0.6-4.6); Lymphocytes % 3.7 %; Mean Corpuscular HGB Conc 33.4 g/dL (31.6-35.5); Mean Corpuscular Hemoglobin 29.9 pg (28.0-33.3); Mean Corpuscular Volume 89.4 fL (83.0-100.0); Mean Platelet Volume 9.1 fL (9.4-12.4); Monocytes # 0.4 K/mcL (0.0-1.3); Monocytes % 3.4 %; Neutrophils # 10.7 K/mcL (1.6-8.9); Platelet Count 292 K/mcL (140-400); Red Blood Count 3.95 M/mcL (4.19-5.50); Red Cell Distribution Width 11.7 % (11.5-14.5); Segmented Neutrophils % 86.7 %; White Blood Count 12.4 K/mcL (4.3-11.1)
[2019-10-22 01:19] LABS: VBG Ionized Calcium 1.03 mmol/L (1.15-1.35)
[2019-10-22 01:46] LABS: BUN/Creatinine Ratio 40 (6-26); Blood Urea Nitrogen 25 mg/dL (6-20); Calcium 7.6 mg/dL (8.6-10.3); Carbon Dioxide 35 mEq/L (23-29); Chloride 95 mEq/L (98-107); Glucose 201 mg/dL (70-105); Magnesium 2.1 mg/dL (1.6-2.6); Osmolality,Calculated 290 (280-300); Potassium 3.8 mEq/L (3.5-5.1); Sodium 135 mEq/L (136-145); eGFR For African Americans > 60 (> 60); eGFR For Non-African Americans > 60 (> 60)
[2019-10-22] MEDS: Cefepime HCl 2,000 MG in 0.9 % Sodium Chloride Mini Bag 100 ML IVPB SCH ×2 (01:59→09:56)
[2019-10-22] MEDS: MetroNIDAZOLE 500 MG/100 ML 500 MG/100 ML BAG IVPB SCH ×3 (02:00→16:32)
[2019-10-22] MEDS: Calcium Gluconate 1gm/50mL 1 GM/50 ML BAG IVPB PRN ×2 (02:57→16:31)
[2019-10-22] MEDS: FentaNYL (PF) 1,000 MCG in 0.9 % Sodium Chloride 80 ML IVC SCH ×2 (04:34→16:33)
[2019-10-22 04:49] LABS: ABG Base Excess 12 mEq/L (-2 to 3); ABG HCO3 37 mEq/L (21-27); ABG Oxygen Saturation 98 % (95-98); ABG PCO2 47 mmHg (35-45); ABG PO2 94 mmHg (85-104); ABG TCO2 38 mEq/L (20-26); Blood Gas Modality ASSIST CONTROL; Blood Gas VT 450 cc
[2019-10-22] MEDS: *HR* Heparin 5,000 UNIT/ML VIAL SQ SCH ×3 (06:03→20:31)
[2019-10-22] MEDS: Insulin Human Regular 100 UNIT in 0.9 % Sodium Chloride 100 ML IVC SCH ×3 (07:00→21:21)
[2019-10-22] MEDS: Furosemide 20 MG/2 ML VIAL IVP SCH ×2 (08:02→20:32)
[2019-10-22] MEDS: Chlorhexidine Rinse 15 ML MOUTHWASH MM SCH ×2 (08:04→20:31)
[2019-10-22] MEDS: Pantoprazole 40 MG VIAL IVP SCH (08:04)
[2019-10-22] MEDS: Dexmedetomidine HCl 400 MCG/100 ML MLS IVC SCH (08:17)
[2019-10-22 09:43] LABS: ABG Base Excess 13 mEq/L (-2 to 3); ABG HCO3 38 mEq/L (21-27); ABG Oxygen Saturation 95 % (95-98); ABG PCO2 51 mmHg (35-45); ABG PH 7.48 pH Units (7.32-7.45); ABG PO2 71 mmHg (85-104); ABG TCO2 39 mEq/L (20-26); Blood Gas Modality ASSIST CONTROL; Blood Gas VT 500 cc
[2019-10-22] MEDS: Norepinephrine 4 MG in 0.9 % Sodium Chloride 250 ML IVC SCH (10:34)
[2019-10-22 15:20] LABS: VBG Ionized Calcium 1.08 mmol/L (1.15-1.35)
[2019-10-22] MEDS: Meropenem 1,000 MG in 0.9 % Sodium Chloride Mini Bag 100 ML IVPB SCH (16:31)
[2019-10-22 22:04] LABS: Albumin 2.2 g/dL (3.5-5.7); Albumin/Globulin Ratio 0.6 (1.1-2.2); Bilirubin,Direct 0.1 mg/dL (0.0-0.2); Bilirubin,Indirect 0.2 mg/dL (0.0-1.0); Bilirubin,Total 0.3 mg/dL (0.3-1.0); Globulin 3.8 g/dL (2.4-3.5)
[2019-10-23] MEDS: Artificial Tears SOLN 15 ML BOTTLE BOTH EYES PRN ×2 (00:01→02:57)
[2019-10-23] MEDS: FentaNYL (PF) 1,000 MCG in 0.9 % Sodium Chloride 80 ML IVC SCH ×4 (00:01→17:15)
[2019-10-23] MEDS: Artificial Tears SOLN 15 ML BOTTLE BOTH EYES SCH ×6 (00:04→20:49)
[2019-10-23] MEDS: MetroNIDAZOLE 500 MG/100 ML 500 MG/100 ML BAG IVPB SCH (01:56)
[2019-10-23] MEDS ORDERED: Scopolamine Patch 1.5 MG PATCH.TD72 TD ONE (02:37)
[2019-10-23 03:39] LABS: Hematocrit 35.1 % (37.5-50.1); Hemoglobin 11.2 g/dL (12.9-16.9); Mean Corpuscular HGB Conc 31.9 g/dL (31.6-35.5); Mean Corpuscular Hemoglobin 29.1 pg (28.0-33.3); Mean Corpuscular Volume 91.2 fL (83.0-100.0); Mean Platelet Volume 9.3 fL (9.4-12.4); Platelet Count 286 K/mcL (140-400); Red Blood Count 3.85 M/mcL (4.19-5.50); Red Cell Distribution Width 11.8 % (11.5-14.5); White Blood Count 10.2 K/mcL (4.3-11.1)
[2019-10-23 03:41] LABS: VBG Ionized Calcium 1.03 mmol/L (1.15-1.35)
[2019-10-23 03:56] LABS: BUN/Creatinine Ratio 42 (6-26); Blood Urea Nitrogen 20 mg/dL (6-20); Calcium 7.7 mg/dL (8.6-10.3); Carbon Dioxide 35 mEq/L (23-29); Chloride 98 mEq/L (98-107); Glucose 161 mg/dL (70-105); Magnesium 1.9 mg/dL (1.6-2.6); Osmolality,Calculated 280 (280-300); Phosphorous 3.1 mg/dL (2.7-4.5); Potassium 4.4 mEq/L (3.5-5.1); Sodium 132 mEq/L (136-145); eGFR For African Americans > 60 (> 60); eGFR For Non-African Americans > 60 (> 60)
[2019-10-23 04:18] LABS: Lymphocytes # 0.8 K/mcL (0.6-4.6); Monocytes # 0.4 K/mcL (0.0-1.3); Neutrophils # 8.4 K/mcL (1.6-8.9)
[2019-10-23 04:20] LABS: ABG Base Excess 10 mEq/L (-2 to 3); ABG HCO3 36 mEq/L (21-27); ABG Oxygen Saturation 98 % (95-98); ABG PCO2 50 mmHg (35-45); ABG PH 7.46 pH Units (7.32-7.45); ABG PO2 98 mmHg (85-104); ABG TCO2 37 mEq/L (20-26); Blood Gas Modality AF; Blood Gas VT 500 cc
[2019-10-23] MEDS: Dexmedetomidine HCl 400 MCG/100 ML MLS IVC SCH ×2 (05:23→19:42)
[2019-10-23] MEDS: Calcium Gluconate 1gm/50mL 1 GM/50 ML BAG IVPB PRN (05:36)
[2019-10-23] MEDS: *HR* Heparin 5,000 UNIT/ML VIAL SQ SCH ×3 (05:37→20:49)
[2019-10-23] MEDS: Insulin Human Regular 100 UNIT in 0.9 % Sodium Chloride 100 ML IVC SCH ×2 (06:29→21:59)
[2019-10-23] MEDS: Pantoprazole 40 MG VIAL IVP SCH (09:35)
[2019-10-23] MEDS: Furosemide 20 MG/2 ML VIAL IVP SCH ×2 (09:36→20:49)
[2019-10-23] MEDS: Chlorhexidine Rinse 15 ML MOUTHWASH MM SCH ×2 (09:36→20:49)
[2019-10-23] MEDS: Aspirin 81 MG TAB.CHEW GTUBE SCH (09:36)
[2019-10-23] MEDS: Meropenem 1,000 MG in 0.9 % Sodium Chloride Mini Bag 100 ML IVPB SCH ×3 (09:36→16:20)
[2019-10-23] MEDS: Norepinephrine 4 MG in 0.9 % Sodium Chloride 250 ML IVC SCH (19:42)
[2019-10-23] MEDS ORDERED: QUEtiapine Fumarate 25 MG TABLET PO SCH (21:00)
[2019-10-24] MEDS: Meropenem 1,000 MG in 0.9 % Sodium Chloride Mini Bag 100 ML IVPB SCH ×4 (00:11→23:24)
[2019-10-24] MEDS: Artificial Tears SOLN 15 ML BOTTLE BOTH EYES SCH ×4 (00:15→11:26)
[2019-10-24 04:12] LABS: ABG Base Excess 11 mEq/L (-2 to 3); ABG HCO3 36 mEq/L (21-27); ABG Oxygen Saturation 91 % (95-98); ABG PCO2 50 mmHg (35-45); ABG PH 7.47 pH Units (7.32-7.45); ABG PO2 58 mmHg (85-104); ABG TCO2 38 mEq/L (20-26); Blood Gas Modality ASSIST CONTROL; Blood Gas VT 480 cc
[2019-10-24] MEDS: Dexmedetomidine HCl 400 MCG/100 ML MLS IVC SCH ×5 (04:12→21:35)
[2019-10-24 04:16] LABS: VBG Ionized Calcium 0.99 mmol/L (1.15-1.35)
[2019-10-24 04:33] LABS: Phosphorous 3.5 mg/dL (2.7-4.5)
[2019-10-24 05:00] LABS: BUN/Creatinine Ratio 30 (6-26); Blood Urea Nitrogen 17 mg/dL (6-20); Calcium 7.8 mg/dL (8.6-10.3); Carbon Dioxide 36 mEq/L (23-29); Chloride 95 mEq/L (98-107); Glucose 186 mg/dL (70-105); Magnesium 1.9 mg/dL (1.6-2.6); Osmolality,Calculated 284 (280-300); Potassium 4.9 mEq/L (3.5-5.1); Sodium 134 mEq/L (136-145); eGFR For African Americans > 60 (> 60); eGFR For Non-African Americans > 60 (> 60)
[2019-10-24] MEDS: Calcium Gluconate 1gm/50mL 1 GM/50 ML BAG IVPB PRN ×3 (05:18→15:53)
[2019-10-24] MEDS: *HR* Heparin 5,000 UNIT/ML VIAL SQ SCH ×3 (05:18→19:57)
[2019-10-24 05:46] LABS: Basophils # 0.1 K/mcL (0.0-0.2); Basophils % 1.2 %; Eosinophils # 0.1 K/mcL (0.0-0.6); Eosinophils % 2.1 %; Hematocrit 37.2 % (37.5-50.1); Hemoglobin 11.4 g/dL (12.9-16.9); Immature Granulocytes % 7.9 % (0-4); Lymphocytes # 0.7 K/mcL (0.6-4.6); Lymphocytes % 10.3 %; Mean Corpuscular HGB Conc 30.6 g/dL (31.6-35.5); Mean Corpuscular Hemoglobin 28.9 pg (28.0-33.3); Mean Corpuscular Volume 94.4 fL (83.0-100.0); Mean Platelet Volume 9.4 fL (9.4-12.4); Monocytes # 0.6 K/mcL (0.0-1.3); Monocytes % 8.3 %; Neutrophils # 4.7 K/mcL (1.6-8.9); Platelet Count 268 K/mcL (140-400); Red Blood Count 3.94 M/mcL (4.19-5.50); Red Cell Distribution Width 11.9 % (11.5-14.5); Segmented Neutrophils % 70.2 %; White Blood Count 6.7 K/mcL (4.3-11.1)
[2019-10-24 06:33] LABS: Anisocytosis 1+ (Not Present); Platelet Estimate Normal (Normal); Poikilocytosis 1+ (Not Present)
[2019-10-24] MEDS ORDERED: Furosemide 40 MG/4 ML VIAL IVP STA (08:09)
[2019-10-24] MEDS: Pantoprazole 40 MG VIAL IVP SCH (08:26)
[2019-10-24] MEDS: Aspirin 81 MG TAB.CHEW GTUBE SCH (08:26)
[2019-10-24] MEDS: Chlorhexidine Rinse 15 ML MOUTHWASH MM SCH ×2 (08:26→19:53)
[2019-10-24] MEDS: Furosemide 20 MG/2 ML VIAL IVP SCH ×2 (08:27→19:53)
[2019-10-24] MEDS ORDERED: Furosemide 40 MG/4 ML VIAL IVP ONE (12:00)
[2019-10-24] MEDS ORDERED: Insulin LISPRO 300 UNITS/3 ML VIAL SQ SCH (12:00)
[2019-10-24] MEDS ORDERED: *HR* Metoprolol 5 MG/5 ML VIAL IVP PRN (14:34)
[2019-10-24 15:17] LABS: VBG Ionized Calcium 1.01 mmol/L (1.15-1.35)
[2019-10-24 15:27] LABS: BUN/Creatinine Ratio 34 (6-26); Blood Urea Nitrogen 19 mg/dL (6-20); Calcium 7.8 mg/dL (8.6-10.3); Carbon Dioxide 36 mEq/L (23-29); Chloride 92 mEq/L (98-107); Glucose 305 mg/dL (70-105); Osmolality,Calculated 290 (280-300); Potassium 3.9 mEq/L (3.5-5.1); Sodium 133 mEq/L (136-145); eGFR For African Americans > 60 (> 60); eGFR For Non-African Americans > 60 (> 60)
[2019-10-24] MEDS: Insulin LISPRO 300 UNITS/3 ML VIAL SQ SCH ×3 (16:05→23:24)
[2019-10-24] MEDS: Norepinephrine 4 MG in 0.9 % Sodium Chloride 250 ML IVC SCH (19:09)
[2019-10-24] MEDS: *HR* LORazepam 2 MG/ML VIAL IVP PRN (21:00)
[2019-10-24 22:06] LABS: BUN/Creatinine Ratio 29 (6-26); Blood Urea Nitrogen 15 mg/dL (6-20); Carbon Dioxide 35 mEq/L (23-29); Chloride 96 mEq/L (98-107); Glucose 174 mg/dL (70-105); Osmolality,Calculated 279 (280-300); Potassium 3.8 mEq/L (3.5-5.1); Sodium 132 mEq/L (136-145); eGFR For African Americans > 60 (> 60); eGFR For Non-African Americans > 60 (> 60)
[2019-10-25] MEDS: Dexmedetomidine HCl 400 MCG/100 ML MLS IVC SCH ×7 (01:08→23:38)
[2019-10-25] MEDS: Insulin LISPRO 300 UNITS/3 ML VIAL SQ SCH ×6 (03:25→23:23)
[2019-10-25 03:46] LABS: Basophils # 0.1 K/mcL (0.0-0.2); Basophils % 0.7 %; Eosinophils # 0.1 K/mcL (0.0-0.6); Hematocrit 33.2 % (37.5-50.1); Immature Granulocytes % 5.3 % (0-4); Lymphocytes # 0.8 K/mcL (0.6-4.6); Lymphocytes % 11.4 %; Mean Corpuscular HGB Conc 33.1 g/dL (31.6-35.5); Mean Corpuscular Hemoglobin 29.5 pg (28.0-33.3); Mean Platelet Volume 9.2 fL (9.4-12.4); Monocytes # 0.8 K/mcL (0.0-1.3); Monocytes % 11.7 %; Neutrophils # 4.8 K/mcL (1.6-8.9); Platelet Count 337 K/mcL (140-400); Red Blood Count 3.73 M/mcL (4.19-5.50); Red Cell Distribution Width 11.6 % (11.5-14.5); Segmented Neutrophils % 69.9 %; White Blood Count 6.9 K/mcL (4.3-11.1)
[2019-10-25 04:05] LABS: BUN/Creatinine Ratio 32 (6-26); Blood Urea Nitrogen 15 mg/dL (6-20); Calcium 8.1 mg/dL (8.6-10.3); Carbon Dioxide 33 mEq/L (23-29); Chloride 97 mEq/L (98-107); Glucose 161 mg/dL (70-105); Magnesium 1.8 mg/dL (1.6-2.6); Osmolality,Calculated 280 (280-300); Potassium 4.2 mEq/L (3.5-5.1); Sodium 133 mEq/L (136-145); eGFR For African Americans > 60 (> 60); eGFR For Non-African Americans > 60 (> 60)
[2019-10-25 04:33] LABS: Platelet Estimate Normal (Normal)
[2019-10-25] MEDS: *HR* Heparin 5,000 UNIT/ML VIAL SQ SCH ×3 (05:36→22:17)
[2019-10-25] MEDS: *HR* LORazepam 2 MG/ML VIAL IVP PRN ×3 (05:36→22:30)
[2019-10-25] MEDS: Meropenem 1,000 MG in 0.9 % Sodium Chloride Mini Bag 100 ML IVPB SCH ×3 (07:59→23:16)
[2019-10-25] MEDS: Furosemide 20 MG/2 ML VIAL IVP SCH ×2 (08:06→19:50)
[2019-10-25] MEDS: Pantoprazole 40 MG VIAL IVP SCH (08:06)
[2019-10-25] MEDS: Chlorhexidine Rinse 15 ML MOUTHWASH MM SCH ×2 (08:10→19:50)
[2019-10-25] MEDS: Aspirin 81 MG TAB.CHEW GTUBE SCH (08:10)
[2019-10-25] MEDS: Norepinephrine 4 MG in 0.9 % Sodium Chloride 250 ML IVC SCH (08:12)
[2019-10-26] MEDS: Dexmedetomidine HCl 400 MCG/100 ML MLS IVC SCH ×7 (03:04→21:26)
[2019-10-26] MEDS: Insulin LISPRO 300 UNITS/3 ML VIAL SQ SCH ×6 (03:20→23:31)
[2019-10-26 05:00] LABS: Basophils % 0.3 %; Eosinophils # 0.1 K/mcL (0.0-0.6); Eosinophils % 0.8 %; Hematocrit 33.2 % (37.5-50.1); Immature Granulocytes % 2.2 % (0-4); Lymphocytes # 1.2 K/mcL (0.6-4.6); Lymphocytes % 14.9 %; Mean Corpuscular HGB Conc 33.1 g/dL (31.6-35.5); Mean Corpuscular Hemoglobin 29.2 pg (28.0-33.3); Mean Corpuscular Volume 88.1 fL (83.0-100.0); Mean Platelet Volume 8.7 fL (9.4-12.4); Monocytes # 0.9 K/mcL (0.0-1.3); Monocytes % 11.2 %; Neutrophils # 5.5 K/mcL (1.6-8.9); Platelet Count 381 K/mcL (140-400); Red Blood Count 3.77 M/mcL (4.19-5.50); Red Cell Distribution Width 11.8 % (11.5-14.5); Segmented Neutrophils % 70.6 %; White Blood Count 7.8 K/mcL (4.3-11.1)
[2019-10-26] MEDS: *HR* LORazepam 2 MG/ML VIAL IVP PRN ×4 (05:03→21:26)
[2019-10-26] MEDS: *HR* Heparin 5,000 UNIT/ML VIAL SQ SCH ×3 (05:04→21:27)
[2019-10-26 05:05] LABS: VBG Ionized Calcium 1.14 mmol/L (1.15-1.35)
[2019-10-26 05:20] LABS: BUN/Creatinine Ratio 29 (6-26); Blood Urea Nitrogen 17 mg/dL (6-20); Calcium 8.4 mg/dL (8.6-10.3); Carbon Dioxide 32 mEq/L (23-29); Chloride 99 mEq/L (98-107); Glucose 143 mg/dL (70-105); Magnesium 1.9 mg/dL (1.6-2.6); Osmolality,Calculated 286 (280-300); Potassium 3.9 mEq/L (3.5-5.1); Sodium 136 mEq/L (136-145); eGFR For African Americans > 60 (> 60); eGFR For Non-African Americans > 60 (> 60)
[2019-10-26] MEDS ORDERED: QUEtiapine Fumarate 25 MG TABLET PO STA (07:54)
[2019-10-26] MEDS: Pantoprazole 40 MG VIAL IVP SCH (08:54)
[2019-10-26] MEDS: Furosemide 20 MG/2 ML VIAL IVP SCH ×2 (08:55→20:09)
[2019-10-26] MEDS: Chlorhexidine Rinse 15 ML MOUTHWASH MM SCH ×2 (08:55→20:09)
[2019-10-26] MEDS: Meropenem 1,000 MG in 0.9 % Sodium Chloride Mini Bag 100 ML IVPB SCH ×3 (08:55→23:29)
[2019-10-26] MEDS: Norepinephrine 4 MG in 0.9 % Sodium Chloride 250 ML IVC SCH (08:55)
[2019-10-26] MEDS: Aspirin 81 MG TAB.CHEW GTUBE SCH (08:55)
[2019-10-26 17:13] LABS: Adenovirus Not Detected (Not Detect); Bordetella Pertussis Not Detected (Not Detect); Chlamydophila pneumoniae Not Detected (Not Detect); Coronavirus 229E Not Detected (Not Detect); Coronavirus HKU1 Not Detected (Not Detect); Coronavirus NL63 Not Detected (Not Detect); Coronavirus OC43 Not Detected (Not Detect); Human Metapneumovirus Not Detected (Not Detect); Human Rhinovirus/Enterovirus Not Detected (Not Detect); Influenza A Subtype 2009 H1 Not Detected (Not Detect); Influenza B Not Detected (Not Detect); Mycoplasma pneumoniae Not Detected (Not Detect); Parainfluenza Virus 1 Not Detected (Not Detect); Parainfluenza Virus 2 Not Detected (Not Detect); Parainfluenza Virus 3 Not Detected (Not Detect); Parainfluenza Virus 4 Not Detected (Not Detect); Respiratory Syncytial Virus Not Detected (Not Detect)
[2019-10-27] MEDS: Dexmedetomidine HCl 400 MCG/100 ML MLS IVC SCH ×3 (00:20→07:21)
[2019-10-27] MEDS: Insulin LISPRO 300 UNITS/3 ML VIAL SQ SCH ×6 (03:30→23:05)
[2019-10-27] MEDS: *HR* LORazepam 2 MG/ML VIAL IVP PRN ×2 (04:46→21:19)
[2019-10-27 04:53] LABS: Basophils % 0.3 %; Eosinophils # 0.1 K/mcL (0.0-0.6); Eosinophils % 0.8 %; Hematocrit 29.6 % (37.5-50.1); Hemoglobin 9.8 g/dL (12.9-16.9); Immature Granulocytes % 2.1 % (0-4); Lymphocytes # 0.9 K/mcL (0.6-4.6); Mean Corpuscular HGB Conc 33.1 g/dL (31.6-35.5); Mean Corpuscular Hemoglobin 29.7 pg (28.0-33.3); Mean Corpuscular Volume 89.7 fL (83.0-100.0); Monocytes # 0.7 K/mcL (0.0-1.3); Neutrophils # 4.4 K/mcL (1.6-8.9); Platelet Count 329 K/mcL (140-400); Red Cell Distribution Width 11.8 % (11.5-14.5); Segmented Neutrophils % 71.8 %; White Blood Count 6.1 K/mcL (4.3-11.1)
[2019-10-27] MEDS: *HR* Heparin 5,000 UNIT/ML VIAL SQ SCH ×3 (05:08→21:19)
[2019-10-27 05:11] LABS: BUN/Creatinine Ratio 33 (6-26); Blood Urea Nitrogen 17 mg/dL (6-20); Calcium 7.7 mg/dL (8.6-10.3); Carbon Dioxide 29 mEq/L (23-29); Chloride 104 mEq/L (98-107); Glucose 106 mg/dL (70-105); Osmolality,Calculated 282 (280-300); Potassium 3.7 mEq/L (3.5-5.1); Sodium 135 mEq/L (136-145); eGFR For African Americans > 60 (> 60); eGFR For Non-African Americans > 60 (> 60)
[2019-10-27 05:13] LABS: Magnesium 1.8 mg/dL (1.6-2.6); Phosphorous 4.6 mg/dL (2.7-4.5)
[2019-10-27 07:11] LABS: VBG Ionized Calcium 1.16 mmol/L (1.15-1.35); VBG PH 7.42 pH Units (7.32-7.42)
[2019-10-27] MEDS: Aspirin 81 MG TAB.CHEW GTUBE SCH (07:22)
[2019-10-27] MEDS: Norepinephrine 4 MG in 0.9 % Sodium Chloride 250 ML IVC SCH (07:44)
[2019-10-27] MEDS: Furosemide 20 MG/2 ML VIAL IVP SCH ×2 (09:56→20:10)
[2019-10-27] MEDS: Chlorhexidine Rinse 15 ML MOUTHWASH MM SCH ×2 (09:57→20:15)
[2019-10-27] MEDS: Meropenem 1,000 MG in 0.9 % Sodium Chloride Mini Bag 100 ML IVPB SCH ×3 (09:57→23:04)
[2019-10-27] MEDS ORDERED: Acetaminophen 650 MG RECTAL SUPP RC PRN (14:03)
[2019-10-27] MEDS ORDERED: Acetaminophen IV 500 MG/50 ML INFUS..BTL IVPB ONE (14:03)
[2019-10-27] MEDS ORDERED: E-Z-PAQUE (BARIUM SULF) SUSP 1 BOTTLE PO ONE (15:15)
[2019-10-27] MEDS ORDERED: E-Z-HD (BARIUM SULF) SUSPENSION PO ONE (15:15)
[2019-10-28] MEDS: Dexmedetomidine HCl 400 MCG/100 ML MLS IVC SCH (02:16)
[2019-10-28] MEDS: Insulin LISPRO 300 UNITS/3 ML VIAL SQ SCH ×4 (04:25→18:09)
[2019-10-28 04:33] LABS: Basophils % 0.4 %; Eosinophils % 0.6 %; Hematocrit 30.1 % (37.5-50.1); Hemoglobin 10.1 g/dL (12.9-16.9); Immature Granulocytes % 1.2 % (0-4); Lymphocytes # 0.8 K/mcL (0.6-4.6); Lymphocytes % 15.8 %; Mean Corpuscular HGB Conc 33.6 g/dL (31.6-35.5); Mean Corpuscular Hemoglobin 29.5 pg (28.0-33.3); Mean Platelet Volume 8.7 fL (9.4-12.4); Monocytes # 0.5 K/mcL (0.0-1.3); Monocytes % 10.4 %; Neutrophils # 3.7 K/mcL (1.6-8.9); Platelet Count 398 K/mcL (140-400); Red Blood Count 3.42 M/mcL (4.19-5.50); Red Cell Distribution Width 11.9 % (11.5-14.5); Segmented Neutrophils % 71.6 %; White Blood Count 5.2 K/mcL (4.3-11.1)
[2019-10-28 04:52] LABS: Alanine Aminotransferase 17 Units/L (7-52); Albumin 2.5 g/dL (3.5-5.7); Albumin/Globulin Ratio 0.7 (1.1-2.2); Alkaline Phosphatase 45 Units/L (34-104); Aspartate Amino Transferase 17 Units/L (13-39); BUN/Creatinine Ratio 26 (6-26); Bilirubin,Total 0.4 mg/dL (0.3-1.0); Blood Urea Nitrogen 13 mg/dL (6-20); Calcium 7.9 mg/dL (8.6-10.3); Carbon Dioxide 28 mEq/L (23-29); Chloride 100 mEq/L (98-107); Globulin 3.8 g/dL (2.4-3.5); Glucose 212 mg/dL (70-105); Osmolality,Calculated 290 (280-300); Potassium 3.8 mEq/L (3.5-5.1); Sodium 137 mEq/L (136-145); Total Protein 6.3 g/dL (6.4-8.9); eGFR For African Americans > 60 (> 60); eGFR For Non-African Americans > 60 (> 60)
[2019-10-28] MEDS: *HR* Heparin 5,000 UNIT/ML VIAL SQ SCH ×3 (05:13→20:44)
[2019-10-28] MEDS ORDERED: *HR* Metoprolol 5 MG/5 ML VIAL IVP PRN ×2 (07:56→13:53)
[2019-10-28] MEDS: Meropenem 1,000 MG in 0.9 % Sodium Chloride Mini Bag 100 ML IVPB SCH ×3 (08:05→23:32)
[2019-10-28] MEDS: Furosemide 20 MG/2 ML VIAL IVP SCH ×2 (08:05→20:44)
[2019-10-28] MEDS: Aspirin 81 MG TAB.CHEW GTUBE SCH (08:05)
[2019-10-28] MEDS: Chlorhexidine Rinse 15 ML MOUTHWASH MM SCH (08:05)
[2019-10-28] MEDS ORDERED: Ondansetron 4 MG/2 ML VIAL IVP PRN (13:53)
[2019-10-28] MEDS ORDERED: Naloxone 0.4 MG/ML INJ IVP PRN (13:53)
[2019-10-28] MEDS ORDERED: *HR* Dextrose 50 % in Water (Syg) 50 ML SYRINGE IVP PRN ×3 (13:53)
[2019-10-28] MEDS ORDERED: Albuterol 2.5 MG/3 ML NEBULIZER IH PRN (13:53)
[2019-10-28] MEDS ORDERED: Dextrose Gel 15 GM/37.5 ML TUBE PO PRN ×2 (13:53)
[2019-10-28] MEDS ORDERED: D5% in Water 1,000 ML IVC PRN (13:53)
[2019-10-28] MEDS ORDERED: Insulin LISPRO 300 UNITS/3 ML VIAL SQ SCH ×5 (13:53→21:00)
[2019-10-28] MEDS ORDERED: Ipratropium/Albuterol Neb 3 ML IH PRN (13:53)
[2019-10-28] MEDS ORDERED: Calcium Gluconate 1gm/50mL 1 GM/50 ML BAG IVPB PRN (13:53)
[2019-10-28] MEDS ORDERED: Acetaminophen 650 MG RECTAL SUPP RC PRN (13:53)
[2019-10-29] MEDS: *HR* Heparin 5,000 UNIT/ML VIAL SQ SCH ×3 (05:28→21:09)
[2019-10-29 05:34] LABS: Basophils % 0.2 %; Eosinophils # 0.1 K/mcL (0.0-0.6); Eosinophils % 1.1 %; Hematocrit 32.3 % (37.5-50.1); Hemoglobin 10.7 g/dL (12.9-16.9); Immature Granulocytes % 0.5 % (0-4); Lymphocytes # 0.8 K/mcL (0.6-4.6); Lymphocytes % 14.7 %; Mean Corpuscular HGB Conc 33.1 g/dL (31.6-35.5); Mean Corpuscular Hemoglobin 29.3 pg (28.0-33.3); Mean Corpuscular Volume 88.5 fL (83.0-100.0); Mean Platelet Volume 9.2 fL (9.4-12.4); Monocytes # 0.5 K/mcL (0.0-1.3); Monocytes % 8.2 %; Neutrophils # 4.3 K/mcL (1.6-8.9); Platelet Count 500 K/mcL (140-400); Red Blood Count 3.65 M/mcL (4.19-5.50); Red Cell Distribution Width 12.1 % (11.5-14.5); Segmented Neutrophils % 75.3 %; White Blood Count 5.7 K/mcL (4.3-11.1)
[2019-10-29 06:10] LABS: Alanine Aminotransferase 18 Units/L (7-52); Albumin 2.8 g/dL (3.5-5.7); Albumin/Globulin Ratio 0.7 (1.1-2.2); Alkaline Phosphatase 46 Units/L (34-104); Aspartate Amino Transferase 18 Units/L (13-39); BUN/Creatinine Ratio 28 (6-26); Bilirubin,Total 0.4 mg/dL (0.3-1.0); Blood Urea Nitrogen 14 mg/dL (6-20); Calcium 8.4 mg/dL (8.6-10.3); Carbon Dioxide 28 mEq/L (23-29); Chloride 104 mEq/L (98-107); Globulin 4.1 g/dL (2.4-3.5); Glucose 233 mg/dL (70-105); Osmolality,Calculated 298 (280-300); Potassium 3.5 mEq/L (3.5-5.1); Sodium 140 mEq/L (136-145); Total Protein 6.9 g/dL (6.4-8.9); eGFR For African Americans > 60 (> 60); eGFR For Non-African Americans > 60 (> 60)
[2019-10-29] MEDS: Meropenem 1,000 MG in 0.9 % Sodium Chloride Mini Bag 100 ML IVPB SCH ×2 (08:45→15:56)
[2019-10-29] MEDS: Insulin LISPRO 300 UNITS/3 ML VIAL SQ SCH ×3 (08:45→17:19)
[2019-10-29] MEDS: Furosemide 20 MG/2 ML VIAL IVP SCH (08:45)
[2019-10-29] MEDS: Insulin DETEMIR 100 UNIT/ML X5UNITS SQ SCH ×2 (10:13→21:04)
[2019-10-30] MEDS: Meropenem 1,000 MG in 0.9 % Sodium Chloride Mini Bag 100 ML IVPB SCH ×4 (00:49→23:53)
[2019-10-30] MEDS: *HR* Heparin 5,000 UNIT/ML VIAL SQ SCH ×3 (05:45→22:30)
[2019-10-30] MEDS: Insulin DETEMIR 100 UNIT/ML X5UNITS SQ SCH ×2 (08:10→20:42)
[2019-10-30] MEDS: Insulin LISPRO 300 UNITS/3 ML VIAL SQ SCH ×3 (08:10→16:32)
[2019-10-31 05:15] LABS: Basophils % 0.4 %; Eosinophils # 0.1 K/mcL (0.0-0.6); Hematocrit 31.1 % (37.5-50.1); Hemoglobin 10.4 g/dL (12.9-16.9); Immature Granulocytes % 0.5 % (0-4); Lymphocytes # 1.4 K/mcL (0.6-4.6); Lymphocytes % 24.2 %; Mean Corpuscular HGB Conc 33.4 g/dL (31.6-35.5); Mean Corpuscular Hemoglobin 29.5 pg (28.0-33.3); Mean Corpuscular Volume 88.4 fL (83.0-100.0); Mean Platelet Volume 8.7 fL (9.4-12.4); Monocytes # 0.3 K/mcL (0.0-1.3); Monocytes % 6.1 %; Neutrophils # 3.7 K/mcL (1.6-8.9); Platelet Count 412 K/mcL (140-400); Red Blood Count 3.52 M/mcL (4.19-5.50); Red Cell Distribution Width 12.2 % (11.5-14.5); Segmented Neutrophils % 66.8 %; White Blood Count 5.6 K/mcL (4.3-11.1)
[2019-10-31 05:36] LABS: BUN/Creatinine Ratio 34 (6-26); Blood Urea Nitrogen 15 mg/dL (6-20); Calcium 8.5 mg/dL (8.6-10.3); Carbon Dioxide 27 mEq/L (23-29); Chloride 106 mEq/L (98-107); Glucose 120 mg/dL (70-105); Magnesium 1.7 mg/dL (1.6-2.6); Osmolality,Calculated 286 (280-300); Potassium 3.6 mEq/L (3.5-5.1); Sodium 137 mEq/L (136-145); eGFR For African Americans > 60 (> 60); eGFR For Non-African Americans > 60 (> 60)
[2019-10-31] MEDS: *HR* Heparin 5,000 UNIT/ML VIAL SQ SCH ×3 (06:16→21:09)
[2019-10-31] MEDS: Insulin LISPRO 300 UNITS/3 ML VIAL SQ SCH ×3 (08:15→17:27)
[2019-10-31] MEDS: Meropenem 1,000 MG in 0.9 % Sodium Chloride Mini Bag 100 ML IVPB SCH ×2 (17:28)
[2019-10-31] MEDS: Insulin DETEMIR 100 UNIT/ML X5UNITS SQ SCH ×2 (17:29→20:53)
[2019-11-01] MEDS: Meropenem 1,000 MG in 0.9 % Sodium Chloride Mini Bag 100 ML IVPB SCH ×4 (01:16→23:58)
[2019-11-01] MEDS: *HR* Heparin 5,000 UNIT/ML VIAL SQ SCH ×3 (06:26→20:35)
[2019-11-01] MEDS: Insulin DETEMIR 100 UNIT/ML X5UNITS SQ SCH ×2 (07:44→20:35)
[2019-11-01] MEDS: Insulin LISPRO 300 UNITS/3 ML VIAL SQ SCH ×3 (07:44→16:25)
[2019-11-02 05:53] LABS: Basophils % 0.4 %; Eosinophils # 0.2 K/mcL (0.0-0.6); Eosinophils % 3.2 %; Hematocrit 36.8 % (37.5-50.1); Immature Granulocytes % 0.5 % (0-4); Lymphocytes # 1.3 K/mcL (0.6-4.6); Lymphocytes % 22.1 %; Mean Corpuscular HGB Conc 32.9 g/dL (31.6-35.5); Mean Corpuscular Hemoglobin 28.8 pg (28.0-33.3); Mean Corpuscular Volume 87.6 fL (83.0-100.0); Mean Platelet Volume 8.8 fL (9.4-12.4); Monocytes # 0.4 K/mcL (0.0-1.3); Monocytes % 6.8 %; Neutrophils # 3.8 K/mcL (1.6-8.9); Platelet Count 338 K/mcL (140-400); Red Cell Distribution Width 12.5 % (11.5-14.5); White Blood Count 5.7 K/mcL (4.3-11.1)
[2019-11-02 05:55] LABS: Hemoglobin 12.1 g/dL (12.9-16.9)
[2019-11-02] MEDS: *HR* Heparin 5,000 UNIT/ML VIAL SQ SCH ×3 (06:09→20:59)
[2019-11-02 06:13] LABS: BUN/Creatinine Ratio 38 (6-26); Blood Urea Nitrogen 20 mg/dL (6-20); Calcium 8.9 mg/dL (8.6-10.3); Carbon Dioxide 26 mEq/L (23-29); Chloride 103 mEq/L (98-107); Glucose 166 mg/dL (70-105); Osmolality,Calculated 290 (280-300); Potassium 3.9 mEq/L (3.5-5.1); Sodium 137 mEq/L (136-145); eGFR For African Americans > 60 (> 60); eGFR For Non-African Americans > 60 (> 60)
[2019-11-02] MEDS: Meropenem 1,000 MG in 0.9 % Sodium Chloride Mini Bag 100 ML IVPB SCH (08:29)
[2019-11-02] MEDS: Insulin DETEMIR 100 UNIT/ML X5UNITS SQ SCH ×2 (08:30→20:59)
[2019-11-02] MEDS: Insulin LISPRO 300 UNITS/3 ML VIAL SQ SCH ×3 (08:30→17:05)
[2019-11-02] MEDS ORDERED: Aminoglycoside Consult 1 EACH MC ONE (08:33)
[2019-11-02] MEDS ORDERED: E-Z-HD (BARIUM SULF) SUSPENSION PO ONE (11:15)
[2019-11-02] MEDS ORDERED: E-Z-PAQUE (BARIUM SULF) SUSP 1 BOTTLE PO ONE (11:15)
[2019-11-02] MEDS: ceFAZolin 2,000 MG in 0.9 % Sodium Chloride 100 ML IVPB SCH ×2 (17:04→23:43)
[2019-11-03] MEDS: *HR* Heparin 5,000 UNIT/ML VIAL SQ SCH ×3 (04:53→21:07)
[2019-11-03] MEDS: Insulin LISPRO 300 UNITS/3 ML VIAL SQ SCH ×3 (08:35→17:09)
[2019-11-03] MEDS: Insulin DETEMIR 100 UNIT/ML X5UNITS SQ SCH ×2 (08:36→21:08)
[2019-11-03] MEDS: ceFAZolin 2,000 MG in 0.9 % Sodium Chloride 100 ML IVPB SCH ×2 (08:48→15:09)
[2019-11-04] MEDS: ceFAZolin 2,000 MG in 0.9 % Sodium Chloride 100 ML IVPB SCH ×4 (00:06→23:37)
[2019-11-04 05:37] LABS: Hematocrit 38.1 % (37.5-50.1); Hemoglobin 12.7 g/dL (12.9-16.9); Mean Corpuscular HGB Conc 33.3 g/dL (31.6-35.5); Mean Corpuscular Hemoglobin 28.8 pg (28.0-33.3); Mean Corpuscular Volume 86.4 fL (83.0-100.0); Mean Platelet Volume 8.7 fL (9.4-12.4); Platelet Count 267 K/mcL (140-400); Red Blood Count 4.41 M/mcL (4.19-5.50); Red Cell Distribution Width 12.8 % (11.5-14.5); White Blood Count 6.4 K/mcL (4.3-11.1)
[2019-11-04] MEDS: *HR* Heparin 5,000 UNIT/ML VIAL SQ SCH ×3 (05:40→21:14)
[2019-11-04 05:54] LABS: BUN/Creatinine Ratio 35 (6-26); Blood Urea Nitrogen 17 mg/dL (6-20); Calcium 9.1 mg/dL (8.6-10.3); Carbon Dioxide 26 mEq/L (23-29); Chloride 101 mEq/L (98-107); Glucose 175 mg/dL (70-105); Osmolality,Calculated 286 (280-300); Sodium 135 mEq/L (136-145); eGFR For African Americans > 60 (> 60); eGFR For Non-African Americans > 60 (> 60)
[2019-11-04] MEDS: Insulin DETEMIR 100 UNIT/ML X5UNITS SQ SCH ×2 (08:54→21:15)
[2019-11-04] MEDS: Insulin LISPRO 300 UNITS/3 ML VIAL SQ SCH ×3 (08:54→16:17)
[2019-11-04] MEDS ORDERED: *HR* LORazepam 2 MG/ML VIAL IVP ONE (09:54)
[2019-11-04] MEDS ORDERED: Ringers Solution, Lactated 500 ML IVC ONE (12:03)
[2019-11-05] MEDS: *HR* Heparin 5,000 UNIT/ML VIAL SQ SCH ×3 (05:22→21:33)
[2019-11-05] MEDS ORDERED: Melatonin 3 MG TABLET PO PRN (07:40)
[2019-11-05] MEDS: Aspirin 81 MG TAB.CHEW PO SCH (10:14)
[2019-11-05] MEDS: ceFAZolin 2,000 MG in 0.9 % Sodium Chloride 100 ML IVPB SCH ×2 (10:15→16:25)
[2019-11-05] MEDS: Insulin LISPRO 300 UNITS/3 ML VIAL SQ SCH ×3 (10:15→17:57)
[2019-11-05] MEDS: Insulin DETEMIR 100 UNIT/ML X5UNITS SQ SCH ×2 (10:16→21:34)
[2019-11-06] MEDS: ceFAZolin 2,000 MG in 0.9 % Sodium Chloride 100 ML IVPB SCH ×4 (00:03→23:57)
[2019-11-06 03:09] LABS: Basophils % 0.4 %; Eosinophils # 0.3 K/mcL (0.0-0.6); Eosinophils % 4.1 %; Hematocrit 38.9 % (37.5-50.1); Hemoglobin 13.1 g/dL (12.9-16.9); Immature Granulocytes % 0.9 % (0-4); Lymphocytes # 2.9 K/mcL (0.6-4.6); Lymphocytes % 40.9 %; Mean Corpuscular HGB Conc 33.7 g/dL (31.6-35.5); Mean Corpuscular Hemoglobin 29.6 pg (28.0-33.3); Mean Platelet Volume 9.4 fL (9.4-12.4); Monocytes # 0.7 K/mcL (0.0-1.3); Monocytes % 10.4 %; Platelet Count 259 K/mcL (140-400); Red Blood Count 4.42 M/mcL (4.19-5.50); Red Cell Distribution Width 12.9 % (11.5-14.5); Segmented Neutrophils % 43.3 %
[2019-11-06 03:24] LABS: BUN/Creatinine Ratio 32 (6-26); Blood Urea Nitrogen 20 mg/dL (6-20); Calcium 9.5 mg/dL (8.6-10.3); Carbon Dioxide 30 mEq/L (23-29); Chloride 98 mEq/L (98-107); Glucose 155 mg/dL (70-105); Magnesium 1.8 mg/dL (1.6-2.6); Osmolality,Calculated 288 (280-300); Potassium 4.4 mEq/L (3.5-5.1); Sodium 136 mEq/L (136-145); eGFR For African Americans > 60 (> 60); eGFR For Non-African Americans > 60 (> 60)
[2019-11-06] MEDS: *HR* Heparin 5,000 UNIT/ML VIAL SQ SCH ×3 (06:03→20:35)
[2019-11-06] MEDS: Insulin LISPRO 300 UNITS/3 ML VIAL SQ SCH ×3 (10:01→18:22)
[2019-11-06] MEDS: Insulin DETEMIR 100 UNIT/ML X5UNITS SQ SCH ×2 (10:02→20:35)
[2019-11-06] MEDS: Aspirin 81 MG TAB.CHEW PO SCH (10:02)
[2019-11-06] MEDS ORDERED: Acetaminophen 325 MG TABLET PO PRN (14:14)
[2019-11-07] MEDS: *HR* Heparin 5,000 UNIT/ML VIAL SQ SCH ×3 (06:37→21:01)
[2019-11-07] MEDS: ceFAZolin 2,000 MG in 0.9 % Sodium Chloride 100 ML IVPB SCH ×3 (08:58→23:59)
[2019-11-07] MEDS: Aspirin 81 MG TAB.CHEW PO SCH (08:59)
[2019-11-07] MEDS: Insulin DETEMIR 100 UNIT/ML X5UNITS SQ SCH ×2 (08:59→21:02)
[2019-11-07] MEDS: Insulin LISPRO 300 UNITS/3 ML VIAL SQ SCH ×4 (08:59→16:56)
[2019-11-08] MEDS: *HR* Heparin 5,000 UNIT/ML VIAL SQ SCH ×3 (05:46→21:18)
[2019-11-08] MEDS: ceFAZolin 2,000 MG in 0.9 % Sodium Chloride 100 ML IVPB SCH ×2 (08:49→16:36)
[2019-11-08] MEDS: Insulin DETEMIR 100 UNIT/ML X5UNITS SQ SCH ×2 (08:49→21:17)
[2019-11-08] MEDS: Insulin LISPRO 300 UNITS/3 ML VIAL SQ SCH ×3 (08:50→16:36)
[2019-11-08] MEDS: Aspirin 81 MG TAB.CHEW PO SCH (08:50)
[2019-11-09] MEDS: ceFAZolin 2,000 MG in 0.9 % Sodium Chloride 100 ML IVPB SCH ×3 (00:49→17:20)
[2019-11-09] MEDS: *HR* Heparin 5,000 UNIT/ML VIAL SQ SCH ×2 (05:31→14:15)
[2019-11-09] MEDS: Aspirin 81 MG TAB.CHEW PO SCH (08:27)
[2019-11-09] MEDS: Insulin DETEMIR 100 UNIT/ML X5UNITS SQ SCH ×2 (08:28→20:20)
[2019-11-09] MEDS: Insulin LISPRO 300 UNITS/3 ML VIAL SQ SCH ×3 (08:28→17:15)
[2019-11-09] MEDS ORDERED: Ringers Solution, Lactated 1,000 ML IVC SCH (12:45)
[2019-11-10] MEDS: ceFAZolin 2,000 MG in 0.9 % Sodium Chloride 100 ML IVPB SCH ×2 (00:35→08:52)
[2019-11-10 05:28] LABS: BUN/Creatinine Ratio 39 (6-26); Blood Urea Nitrogen 19 mg/dL (6-20); Calcium 9.2 mg/dL (8.6-10.3); Carbon Dioxide 28 mEq/L (23-29); Chloride 100 mEq/L (98-107); Glucose 182 mg/dL (70-105); Magnesium 1.6 mg/dL (1.6-2.6); Osmolality,Calculated 287 (280-300); Potassium 4.3 mEq/L (3.5-5.1); Sodium 135 mEq/L (136-145); eGFR For African Americans > 60 (> 60); eGFR For Non-African Americans > 60 (> 60)
[2019-11-10] MEDS ORDERED: Ringers Solution, Lactated 1,000 ML IVC SCH (07:45)
[2019-11-10] MEDS: Aspirin 81 MG TAB.CHEW PO SCH (08:33)
[2019-11-10] MEDS: Insulin LISPRO 300 UNITS/3 ML VIAL SQ SCH (08:34)
[2019-11-10] MEDS: Insulin DETEMIR 100 UNIT/ML X5UNITS SQ SCH (08:54)
[2019-11-10 11:15] VITALS: BP 112/79
== END 2019-11-10 13:10 | DRG 870 ==
LOC: EMEROOARM 14:28 → ICNU 14:28 → SUATTDRO 18:33 → ICNU 18:40 → 3ANU 10-28 19:54
PROVIDERS: ADMIT Pediatrics; ATTEND Internal Medicine